=== PATIENT | female | born 1960 | race Caucasian/White ===

== ENCOUNTER → 2016-11-29 | Outpatient (CLI) | payer OTHER ==
--- NOTE | 2016-11-30 09:20 | RAD ---
EXAM DESCRIPTION: Abdomen Flat Upright CLINICAL HISTORY: DIARRHEA COMPARISON: None. FINDINGS: AP supine and upright views of the abdomen show a nonspecific, nonobstructive bowel gas pattern with no evidence for free intraperitoneal air. No air-filled dilated loops of small bowel are seen. No significant air-fluid levels are identified. No obvious organomegaly is seen. No abnormal calcifications are seen in the expected location of the renal collecting systems. Visualized lung bases are unremarkable. Postsurgical or posttraumatic changes to the left iliac crest. Remote. Lateral plate and screw fixation from T12 through L2 is noted. Calcifications of the spleen are identified. IMPRESSION: Nonspecific abdominal series Electronically signed by: Rivera Bhatia MD 11/30/2016 9:20 AM CDT
== END | disposition home or self-care (01) ==
LOC: LAB.O 13:24
PROVIDERS: ATTEND Surgery
DX: K59.1 Functional diarrhea (principal)

== ENCOUNTER → 2017-01-26 | Outpatient (CLI) | payer OTHER | END | disposition home or self-care (01) | LOC: GMAB 18:17 | PROVIDERS: ATTEND Family Medicine | DX: R30.0 Dysuria (principal) ==

== ENCOUNTER 2017-03-22 16:24 | Observation (INO) | payer OTHER ==
[2017-03-22] MEDS ORDERED: NITROGLYCERIN 0.4 MG 25 EA TAB SL ONE (16:47)
[2017-03-22] MEDS ORDERED: ASPIRIN (CHEWABLE) 81 MG TAB ONE (16:47)
[2017-03-22] MEDS ORDERED: ASPIRIN (CHEWABLE) 81 MG TAB PO ONE (16:52)
[2017-03-22] MEDS: NITROGLYCERIN 0.4 MG 25 EA TAB SL ONE ×2 (16:53→17:46)
--- NOTE | 2017-03-22 17:03 | ED.PDOC ---
History of Present Illness - General Chief Complaint: Chest Pain/OR Stated Complaint: left arm and jaw pain Time Seen by Provider: 03/22/17 16:35 Source: patient, RN notes reviewed, Vital Signs reviewed Exam Limitations: no limitations - History of Present Illness Initial Comments: Patient comes in via private vehicle with c/o of L jaw and arm pain, also she just "does not feel good". No BELL, dizziness, Chest pain, SOB, nausea. She has been having similar episodes off and on for "a while". Last one was ~1 month ago. Came in this time because the pain was worse than before. Timing/Duration: 1 hour Severity: moderate - Jaw currently 3/10 @ worst 9/10, L arm 7/10 Location: other - L jaw and arm Activities at Onset: emotional stress - @ work Prior Chest Pain/Cardiac Workup: cardiac cath - no stenting done Improving Factors: nothing Worsening Factors: nothing Nitro Today/Relief: 0.4 mg x 1, provided by ED, mild relief Aspirin Treatment Today: 81 mg x 4, provided by ED Associated Symptoms: malaise Allergies/Adverse Reactions: Allergies Omeprazole [From Prilosec] Allergy (Verified 03/22/17 16:51) Home Medications: Ambulatory Orders Dicyclomine HCl [Bentyl] 20 mg PO BID PRN #14 tab 11/06/14 Ezetimibe [Zetia] 10 mg PO DAILY 11/06/14 Lisinopril 10 mg PO DAILY 11/06/14 Rosuvastatin Calcium [Crestor] 10 mg PO DAILY 11/06/14 levoFLOXacin [Levaquin] 500 mg PO QDAC #7 tab 11/06/14 metroNIDAZOLE [Flagyl] 500 mg PO BID #14 tab 11/06/14 Review of Systems - Review of Systems Constitutional: States: malaise - No energy EENTM: States: no symptoms reported Respiratory: States: no symptoms reported. Denies: cough, short of breath Cardiology: States: no symptoms reported. Denies: chest pain, palpitations Gastrointestinal/Abdominal: States: no symptoms reported. Denies: nausea Musculoskeletal: States: other - L jaw and L arm pain Skin: States: no symptoms reported Neurological: States: no symptoms reported All other Systems: No Change from Baseline Past Medical History (General) - Patient Medical History Hx Cardiac Disorders: Yes - "blockage" no stents Hx Hypertension: Yes Hx Diabetes: No Hx Gastroesophageal Reflux: Yes Surgical History: Hysterectomy, other - Vaccination History Hx Influenza Vaccination: No Hx Pneumococcal Vaccination: No - Social History Hx Tobacco Use: Yes Cigarettes Packs Per Day: 1 Hx Alcohol Use: No Hx Substance Use: No Hx Substance Use Treatment: No Hx Depression: No - Activities of Daily Living Hospice Agency (if applicable):: None - Female History Patient is a Female of Child Bearing Age (10 -59 yrs old): No Patient : No Family Medical History - Family History Mother Family History: Unknown Living Status: Unknown Physical Exam - Physical Exam General Appearance: Alert, No apparent distress, Well Developed, Well Groomed, Well Hydrated, Well Nourished Neck: full range of motion, supple, normal inspection Respiratory: lungs clear, normal breath sounds, no respiratory distress, no accessory muscle use Cardiovascular/Chest: normal peripheral pulses, regular rate, rhythm, no edema, no gallop, no JVD, no murmur Peripheral Pulses: radial,right: 1+, radial,left: 1+, dorsalis pedis,right: 2+, dorsalis pedis,left: 2+ Gastrointestinal/Abdominal: normal bowel sounds, non tender, soft, no organomegaly, no pulsatile mass Extremity: non-tender, normal inspection, no pedal edema Neurologic: alert, normal mood/affect, oriented x 3 Skin Exam: normal color, warm/dry Comments: Vital Signs 03/22/17 16:32 Temperature 98.2 F Pulse Rate [ 82 pulse ox] Respiratory 18 Rate Blood Pressure 190/107 [Left Arm] O2 Sat by Pulse 98 Oximetry Progress - Progress Progress: 03/22/17 17:06 1 SLNTG given, Jaw pain improved to 2/10 & arm to 4/10. BP improved to 167/95 and was equal in both arms. 03/22/17 17:45 Patient reports pain in her jaw and arm is returning. Will given another SLNTG. Initial labs, EKG and CXR are normal. Will repeat cardiac labs in 3 hours from first draw. 03/22/17 18:26 Pain again returned. Gave 5mg of Morphine IV and she is feeling better. BP 135/ 80. ? cardiac vs pinched nerve in neck. 03/22/17 19:14 Patient reports she is doing well. Pain is currently well controlled. 03/22/17 20:57 Discussed with Hospitalist. Second set of enzymes is normal but patient continues to have a waxing and waning of her symptoms. Pain and BP go up and then with meds both come down. Not sure if this is cardiac, BP or musculoskeletal. Will admit for rule out. - Results/Orders Results/Orders: Laboratory Tests 03/22/17 03/22/17 03/22/17 17:10 17:10 17:10 WBC 8.2 RBC 4.92 Hgb 14.4 Hct 42.2 MCV 85.8 MCH 29.2 MCHC 34.1 RDW 12.9 Plt Count 273 MPV 8.8 Absolute Neuts (auto) 4.60 Absolute Lymphs (auto) 2.40 Absolute Monos (auto) 0.80 Absolute Eos (auto) 0.40 Absolute Basos (auto) 0.10 Neutrophils % 55.9 Lymphocytes % 28.7 Monocytes % 10.1 H Eosinophils % 4.5 Basophils % 0.8 D-Dimer, Quantitative < 200 Sodium 139 Potassium 4.2 Chloride 103 Carbon Dioxide 29 Anion Gap 11.2 L BUN 13 Creatinine 0.51 L BUN/Creatinine Ratio 25.5 H Random Glucose 128 H Serum Osmolality 279.3 Calcium 9.8 Total Bilirubin 0.6 AST 22 ALT 27 Alkaline Phosphatase 87 Creatine Kinase 73 CK-MB (CK-2) 2.4 CK-MB (CK-2) % Not Reportable Troponin I < 0.02 Serum Total Protein 7.1 Albumin 4.2 Globulin 2.9 Albumin/Globulin Ratio 1.4 03/22/17 20:19 WBC RBC Hgb Hct MCV MCH MCHC RDW Plt Count MPV Absolute Neuts (auto) Absolute Lymphs (auto) Absolute Monos (auto) Absolute Eos (auto) Absolute Basos (auto) Neutrophils % Lymphocytes % Monocytes % Eosinophils % Basophils % D-Dimer, Quantitative Sodium Potassium Chloride Carbon Dioxide Anion Gap BUN Creatinine BUN/Creatinine Ratio Random Glucose Serum Osmolality Calcium Total Bilirubin AST ALT Alkaline Phosphatase Creatine Kinase 67 CK-MB (CK-2) 2.8 CK-MB (CK-2) % Not Reportable Troponin I 0.04 Serum Total Protein Albumin Globulin Albumin/Globulin Ratio - EKG/XRAY/CT EKG: Sinus, no ST T wave changes Comments: Rate 72 XRAY: chest - Normal per Radiologist Departure - Departure Clinical Impression: Hypertensive urgency, Jaw pain, Left arm pain Time of Disposition: 20:59 Disposition: Admit Patient Departure Forms: ED Discharge - Pt. Copy, Patient Portal Self Enrollment Referrals: Arsenio Contreras MD [Primary Care Provider] - 1-2 Weeks Home Medications: Ambulatory Orders Dicyclomine HCl [Bentyl] 20 mg PO BID PRN #14 tab 11/06/14 Ezetimibe [Zetia] 10 mg PO DAILY 11/06/14 Lisinopril 10 mg PO DAILY 11/06/14 Rosuvastatin Calcium [Crestor] 10 mg PO DAILY 11/06/14 levoFLOXacin [Levaquin] 500 mg PO QDAC #7 tab 11/06/14 metroNIDAZOLE [Flagyl] 500 mg PO BID #14 tab 11/06/14 Decision To Admit - Decistion To Admit Decision to Admit Reason: Admit from ER Decision to Admit Date: 03/22/17 Decision to Admit Time: 20:57
--- NOTE | 2017-03-22 17:26 | RAD ---
EXAM DESCRIPTION: Chest,1 View CLINICAL HISTORY: L jaw arm pain COMPARISON: 20 April 2010 TECHNIQUE: AP portable chest FINDINGS: The lungs are clear. There is no infiltrate or effusion. The heart is normal size. IMPRESSION: Normal portable chest Electronically signed by: Home Schreiber MD 03/22/2017 5:25 PM CDT
[2017-03-22] MEDS ORDERED: MORPHINE SULFATE INJ 10 MG/ML VIAL IV ONE ×2 (17:56→19:35)
--- NOTE | 2017-03-22 21:44 | HP ---
SUPERVISING PHYSICIAN: Dick Collazo MD CHIEF COMPLAINT: Left jaw and left arm pain. HISTORY OF PRESENT ILLNESS: Ms. Medley is a 57-year-old, female patient who presented to the Emergency Room via private vehicle complaining of left jaw and arm pain. She also notes she "just doesn't feel good." She has had no complaints of headache, dizziness, chest pain, shortness of breath or nausea. In fact, she has had a similar episode of on and off pain for a while which was apparently last month, but came to the Emergency Room this time because the pain was a little worse than previous episodes. In the Emergency Department, she was given nitroglycerin which provided minimal relief. It was noted that she was quite hypertensive with initial blood pressure of 190/107. She was then given morphine that resulted in near resolution of her symptoms. Her blood pressure then improved to 148/78 and shortly after, the pain returned and her blood pressure again elevated and she was given nitroglycerin and morphine as before which resulted in improvement of her symptoms. She had laboratory studies completed that showed she had a CBC that was within normal limits. D-Dimer was less than 200. Her chemistries showed normal electrolytes , normal liver functions and she had two sets of cardiac enzymes prior to admission with initial set less than 0.02 and three hour troponin was 0.04. Dr. Trujillo requested the patient be placed in observation given the nature of her pain with concern for possible underlying cardiac origin given that the patient has had some cardiac history in the past. Review of her past medical records showed she had a cardiac workup in 2008 at which time she had a nuclear stress test that was found to be normal. She also had echocardiogram that was found to be normal with an ejection fraction between 65% and 70%. She does have a significant history of smoking approximately one pack of cigarettes per day as well as she has had significant problems with her cervical and lumbar spine which she has had surgeries for in the past. An EKG in the Emergency Room showed a normal sinus rhythm with no ST wave changes and compared to EKG on 06/16/14, no significant changes. The patient is now going to be placed in observation for continued cardiac monitoring and to further rule out any acute cardiac event as the origin of her neck and arm pain. PAST MEDICAL HISTORY: 1. Hypertension. 2. Hyperlipidemia. 3. Irritable bowel syndrome. 4. Chronic obstructive pulmonary disease. 5. Chronic tobacco abuse. PAST SURGICAL HISTORY: 1. Hysterectomy. 2. Bladder suspension. 3. Lumbar and cervical back surgeries. 4. Surgery to repair deviated septum. HOME MEDICATIONS: Please refer to updated list in electronic medical record for verified medications. 1. Crestor 10 mg daily. 2. Losartan 100 mg at bedtime. FAMILY HISTORY: Father at age 42 from a myocardial infarction. Mother at 72 secondary to Alzheimer's disease. SOCIAL HISTORY: The patient lives in [place], [place]. 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 She is . She smokes approximately one pack of cigarettes per day. She denies any alcohol or drug usage. REVIEW OF SYSTEMS: CONSTITUTIONAL: Denies any fevers, chills, just general malaise. HEENT: Denies headaches, visual disturbances or neck pain or stiffness. She does have left jaw pain as noted in history of present illness. RESPIRATORY: Denies any shortness of breath, cough, hemoptysis. CARDIOVASCULAR: As noted in history of present illness. No significant chest pain, but left jaw and arm pain. Denies any syncopal episodes or palpitations, chest pains or chest pressure. GASTROINTESTINAL: She has a history of irritable bowel syndrome, but denies nausea or vomiting, diarrhea or hematochezia, hematemesis, melena or constipation. GENITOURINARY: Denies dysuria, hematuria, polyuria or other urinary symptoms. MUSCULOSKELETAL: Left arm pain as noted in history of present illness. NEUROLOGIC: Denies headaches, syncopal episodes or other neurologic symptoms. No focal weaknesses or loss of sensation in any extremity and she does move all extremities ad ioana with no change in functionality. PHYSICAL EXAMINATION: VITAL SIGNS: Blood pressure initially in the Emergency Department was 190/107. Heart rate 82. O2 saturation 98% with respirations 18 and temperature 98.2. After nitroglycerin and morphine, blood pressure did improve to 140/78 with heart rate 81. At time of admission to the Medical/Surgical Floor, she was once again hypertensive with blood pressure 157/106. Admission weight was 93.8 kg. GENERAL: The patient appears to be in no acute distress at time of admission to the Medical/Surgical Floor. She is well-hydrated, well-nourished, alert and oriented. HEENT: Tympanic membranes clear bilaterally. Oropharynx is pink, moist without any lesions. NECK: Supple, nontender with full range of motion. No jugular venous distention noted. CHEST: Lungs clear to auscultation bilaterally without any appreciable. rhonchi , wheezes, or rales. CARDIOVASCULAR: Regular rate and rhythm without any appreciable murmurs, gallops, or rubs. ABDOMEN: Obese, but soft, nontender. Positive bowel sounds. EXTREMITIES: There is no cyanosis, clubbing or edema. NEUROLOGIC: The patient is alert and oriented times three. Cranial nerves II- XII are grossly intact. No motor or sensory deficits noted. LABORATORY: CBC on admission was within normal limits with white count 8.2. Coagulation studies showed D-dimer less than 200. Chemistries showed normal electrolytes with potassium 4.2, BUN 13, creatinine 0.5, glucose 128. Liver functions all within normal limits. Initial set of cardiac enzymes showed troponin less than 0.02. Repeat at three hours showed troponin 0.04 with a normal CPK. RADIOLOGY: Chest x-ray in the Emergency Department, single view, per radiologic interpretation showed normal portable chest. EKG showed normal sinus rhythm with no ST wave changes, no T wave inversion compared to old EKG dated 06/16/14. ASSESSMENT: 1. Left jaw and arm pain, needing to rule out underlying myocardial infarction with no mention of chest pains. 2. Hypertensive urgency with the patient having history of hypertension, currently on angiotensin receptor jane. 3. Hyperlipidemia. 4. Strong family history of coronary artery disease with the patient having a normal stress test in 2008 as well as echocardiogram as noted in review of past medical records. 5. Chronic tobacco abuse with one pack a day smoking history, encouraged to stop smoking. 6. History of irritable bowel syndrome. 7. Obesity as evidenced by body mass index of 37.9. PLAN: The patient will be placed in observation tonight and started on telemetry to further rule out any underlying cardiac ischemic events with repeat cardiac enzymes in the morning. She will be started on nitro patch 0.2 mg. She will be provided morphine for pain as needed and close monitoring of her blood pressure and treatment with clonidine as needed p.r.n. She will also be restarted on her losartan tonight in efforts to better control her blood pressure. She will be started on DVT prophylaxis as per protocol. We will plan to repeat EKG and cardiac enzymes in the morning for q.6h. for three sets. We will anticipate length of stay to be one to two days. Once the patient is clinically stable and can be discharged, she will need close clinical followup with her primary care physician, Dr. Contreras. Until then, we will continue to monitor the patient closely and treat appropriately. #[id number] MTDD
[2017-03-22] MEDS ORDERED: NITROGLYCERIN 0.4 MG 25 EA TAB SL PRN (21:57)
[2017-03-22] MEDS ORDERED: ACETAMINOPHEN 325 MG TAB PO PRN (21:57)
[2017-03-22] MEDS ORDERED: MORPHINE SULFATE INJ 10 MG/ML VIAL IV PRN (21:57)
[2017-03-22] MEDS ORDERED: IV SET AND CAP CHANGE INJ INJ SCH (22:00)
[2017-03-22] MEDS ORDERED: cloNIDine HCL 0.1 MG TAB PO ONE (22:05)
[2017-03-22] MEDS ORDERED: NITROGLYCERIN 0.2 MG/HR PATCH TD ONE (22:39)
[2017-03-22] MEDS ORDERED: ZOLPIDEM TARTRATE 5 MG TAB PO PRN (22:50)
[2017-03-22] MEDS ORDERED: LOSARTAN POTASSIUM 100 MG TAB ONE (22:53)
[2017-03-22] MEDS ORDERED: LOSARTAN POTASSIUM 25 MG TAB PO ONE (23:00)
[2017-03-22] MEDS ORDERED: ENOXAPARIN SODIUM 40 MG/0.4 ML SYG SUBCU SCH (23:00)
--- NOTE | 2017-03-22 23:35 | PCM.CORE ---
Physician DVT/VTE - Nurse DVT Assessment & Total Each Risk Factor Represents 1 Point: Age 41-60, Medical PT at Bed Rest, Hx of smoking past year Each Risk Factor is 1 Point: Obesity (BMI >25) DVT Assessment Score: 4 - 3-4 High Risk Treatments: Early Ambulation *, Sequential Compression Device Pharmacological: Enoxaparin 40 mg SQ Daily
[2017-03-23] MEDS: MORPHINE SULFATE INJ 10 MG/ML VIAL IV PRN ×3 (02:01→11:37)
[2017-03-23] MEDS: SODIUM CHLORIDE 0.9% (FLUSH) 10 ML SYG IV PRN ×2 (02:07→08:18)
[2017-03-23 02:20] VITALS: TEMP 97.8
[2017-03-23 08:43] VITALS: BP 123/78
[2017-03-23] MEDS ORDERED: ENOXAPARIN SODIUM 100 MG/ML SYG SUBCU ONE (08:55)
[2017-03-23] MEDS ORDERED: NITROGLYCERIN 0.4 MG/HR PATCH TOP SCH (09:00)
[2017-03-23] MEDS ORDERED: SODIUM CHLORIDE 0.9% (FLUSH) 10 ML SYG IV SCH (09:00)
[2017-03-23] MEDS ORDERED: LOSARTAN POTASSIUM 100 MG TAB PO SCH ×3 (09:00→21:00)
[2017-03-23] MEDS ORDERED: ASPIRIN TABLET 325 MG TAB PO SCH (09:00)
[2017-03-23] MEDS ORDERED: KCL 20MEQ/0.45% NS 1,000 ML IVS PRN (09:04)
[2017-03-23] MEDS ORDERED: ASPIRIN TABLET 325 MG TAB ONE (09:45)
[2017-03-23 10:12] VITALS: O2SAT 95
[2017-03-23] MEDS ORDERED: REMOVE OLD PATCH TOP ONE (10:30)
--- NOTE | 2017-03-23 19:21 | DS ---
SUPERVISING PHYSICIAN: Dick Collazo M.D. DISCHARGE DIAGNOSIS: 1. Atypical chest pain with a non-ST segment elevation myocardial infarction with the patient being transferred to Cardiology Services with Dr. Jarrett at [facility]. 2. Hypertensive urgency with the patient having history of hypertension, currently on angiotensin receptor jane showing good response with a Nitro patch with blood pressure controlled at discharge. 3. Hyperlipidemia not currently on a statin. 4. Strong family history of coronary artery disease. 5. Chronic tobacco abuse with one pack a day smoking history, encouraged to stop smoking. 6. History of irritable bowel syndrome. 7. Obesity as evidenced by body mass index of 37.9. HISTORY OF PRESENT ILLNESS: Ms. Medely is a 57-year-old, female patient who presented initially to the Emergency Room on 03/22/17 via private vehicle complaining of left jaw and arm pain. She had noted that she "just doesn't feel good." She had no complaints of headache, dizziness, chest pain, shortness of breath or nausea on initial presentation. In fact, she has had a similar episode of on and off pain similar to what she was having on admission within the last month, but came to the Emergency Room this time because the pain was worse than previous episodes. In the Emergency Department, she was given nitroglycerin which provided minimal relief. It was also noted that she was quite hypertensive with initial blood pressure of 190/ 107. She was given morphine that resulted in near resolution of her symptoms. Her blood pressure did improve to 148/78 but shortly after the pain returned and her blood pressure again elevated, and she was given nitroglycerin and morphine as before which resulted in improvement of her symptoms. Laboratory studies completed showed that she had a CBC within normal limits. D-Dimer was less than 200. Her chemistries as well showed to be within normal limits including electrolytes and liver functions. Her cardiac enzymes initially showed troponin as 0.02 and three hour post troponin was 0.04. At that point, Dr. Trujillo requested the patient be placed in observation given the nature of her pain and her past medical history, and concern for possible underlying cardiac origin given that the patient has had some cardiac history in the past. Review of her past medical records showed that she had a cardiac workup in 2008. At that time she had a stress test that was found to be normal as well as an echocardiogram with an ejection fraction of 65% to 70%. She does have a significant history of smoking approximately one pack of cigarettes per day as well as she has had significant problems from cervical and lumbar spine disc problems for which she has had surgeries in the past. An EKG in the Emergency Room showed a normal sinus rhythm with no ST wave changes and compared to EKG on 06/16/14, no significant changes were noted. The patient was then placed in observation for cardiac monitoring and to continue to further rule out any acute cardiac event as the origin of her neck, jaw and arm pain. LABORATORY: CBC on admission showed to be within normal limits as well as discharge. White count at discharge was 7.6, hemoglobin 13, hematocrit 39.4, platelet count 250,000. Coagulation studies showed a normal D-dimer. Chemistries showed normal electrolytes on admission and at discharge with potassium 3.9, calcium 9.4, glucose 134, BUN 14, creatinine 0.51. Liver functions showed to be within normal limits. She had 3 sets of cardiac enzymes with the first two being within normal limits, the last one had elevated to 0.35. BNP was 15.1. Lipid panel showed triglycerides of 613 with cholesterol 240, LDL was 93 and HDL was 37. Urinalysis was never collected. RADIOLOGY: She had a chest x-ray in the Emergency Department single view per radiology interpretation showed a normal portable chest. HOSPITAL COURSE: Ms. Medley as noted in the History of Present Illness was admitted for intermittent left jaw, neck and arm pain. As noted above, she did get some relief with Nitro and morphine as well as she was having some problems with blood pressure that responded well to both treatments. She was placed in Observation initially, started on a Nitro patch at 0.2. Her pain did resolve initially with morphine but was intermittent throughout the night and her last troponin was showing to be elevated. She showed no abnormal rhythms on telemetry and her EKG remained unchanged from admission. Given the elevated troponin and current symptoms, arrangements were made for transfer to a higher level of care with Cardiology with Dr. Jarrett at [facility]. PLAN: The patient is to be transferred to [facility] in [place] for cardiology services, accepting Dr. Jarrett. The patient was transferred by ambulance. Diet at transfer was NPO. Condition at transfer was guarded but stable. #[id number] [facility]
[2017-03-23] MEDS ORDERED: ASPIRIN EC 81 MG TAB PO SCH (21:00)
[2017-03-23] MEDS ORDERED: ENOXAPARIN SODIUM 40 MG/0.4 ML SYG SUBCU SCH (21:00)
== END 2017-03-23 11:50 | disposition short-term general hospital (02) ==
LOC: ER 16:24 → MS 21:43
PROVIDERS: ADMIT Nurse Practitioner Family; ATTEND Nurse Practitioner Family
DX: R07.89 Other chest pain (principal); I16.0 Hypertensive urgency; I10 Essential (primary) hypertension; E78.5 Hyperlipidemia, unspecified; F17.210 Nicotine dependence, cigarettes, uncomplicated; K58.9 Irritable bowel syndrome, unspecified; E66.9 Obesity, unspecified; J44.9 Chronic obstructive pulmonary disease, unspecified; Z82.49 Family history of ischemic heart disease and other diseases of the circulatory system; Z68.37 Body mass index [BMI] 37.0-37.9, adult; Z79.899 Other long term (current) drug therapy; Z90.710 Acquired absence of both cervix and uterus; Z81.8 Family history of other mental and behavioral disorders
CPT/HCPCS: 36415 ×4; 71010; 80048; 80053; 80061; 82550 ×3; 82553 ×3; 83880; 84484 ×3; 85025 ×2; 85379; 93005 ×2; 96372 ×2; 96374; 96376 ×2; 99284; 99406; G0378; J1650 ×2; J2270 ×5; J3480

== ENCOUNTER 2017-03-25 22:36 | Observation (INO) | payer OTHER ==
--- NOTE | 2017-03-25 22:47 | ED.PDOC ---
History of Present Illness - General Chief Complaint: General Stated Complaint: elevated bp Time Seen by Provider: 03/25/17 22:46 Source: patient Exam Limitations: no limitations - History of Present Illness Initial Comments: Lexi Medley 57 y/o stated that her blood pressure was high tonight averaging about bp-162/110 which she took several times tonight. stated that she ust got discharge from hospital today after she had nstemi and cardiac cath done showing no significant coronary lesion. Timing/Duration: 1-3 hours Improving Factors: nothing Worsening Factors: nothing Associated Symptoms: denies symptoms Allergies/Adverse Reactions: Allergies Omeprazole [From Prilosec] Allergy (Verified 03/22/17 16:51) Home Medications: Ambulatory Orders Losartan Potassium 100 mg PO BEDTIME 03/23/17 Aspirin [Aspirin Adult Low Dose] 81 mg PO DAILY 03/25/17 Review of Systems - Review of Systems Constitutional: States: no symptoms reported EENTM: States: no symptoms reported Respiratory: States: no symptoms reported Cardiology: States: no symptoms reported Gastrointestinal/Abdominal: States: no symptoms reported Genitourinary: States: no symptoms reported Musculoskeletal: States: no symptoms reported Skin: States: no symptoms reported Neurological: States: no symptoms reported Endocrine: States: no symptoms reported Hematologic/Lymphatic: States: no symptoms reported Past Medical History (General) - Patient Medical History Hx Seizures: No Hx Stroke: No Hx Asthma: No Hx of COPD: No Hx Cardiac Disorders: Yes - "blockage" no stents Hx Congestive Heart Failure: No Hx Pacemaker: No Hx Hypertension: Yes Hx Diabetes: No Hx Gastroesophageal Reflux: Yes Hx MRSA: No Surgical History: tonsillectomy, other - back,hysterectomy,nose - Vaccination History Hx Influenza Vaccination: No Hx Pneumococcal Vaccination: No - Social History Hx Tobacco Use: Yes Hx Alcohol Use: No Hx Substance Use: No Hx Substance Use Treatment: No Hx Depression: No - Female History Patient : No Family Medical History - Family History Mother Family History: Unknown Living Status: Unknown Physical Exam - Physical Exam General Appearance: Alert, No apparent distress Eye Exam: bilateral normal Ears, Nose, Throat: hearing grossly normal, normal ENT inspection Neck: non-tender, full range of motion, supple Respiratory: chest non-tender, lungs clear, normal breath sounds Cardiovascular/Chest: normal peripheral pulses, regular rate, rhythm, no edema, no murmur Peripheral Pulses: radial,right: 1+, radial,left: 1+ Gastrointestinal/Abdominal: normal bowel sounds, non tender, soft, no organomegaly Back Exam: normal inspection, no CVA tenderness, no vertebral tenderness Extremity: normal range of motion, non-tender, no pedal edema, no calf tenderness Neurologic: no motor/sensory deficits, alert, oriented x 3 Skin Exam: normal color Lymphatic: no adenopathy Progress - Progress Progress: 03/26/17 00:27 Vital Signs - 8 hr 03/25/17 03/25/17 22:47 22:48 Temperature 98.2 F Pulse Rate [ 78 78 Left radial] Respiratory 20 20 Rate Blood Pressure 186/109 [Left Arm] O2 Sat by Pulse 95 Oximetry - EKG/XRAY/CT EKG: Sinus Comments: heart rate 71 left atrial enlargement Departure - Departure Clinical Impression: Hypertensive urgency Time of Disposition: 00:48 Disposition: Admit Patient Condition: Fair Referrals: Arsenio Contreras MD [Primary Care Provider] - 1-2 Weeks Home Medications: Ambulatory Orders Losartan Potassium 100 mg PO BEDTIME 03/23/17 Aspirin [Aspirin Adult Low Dose] 81 mg PO DAILY 03/25/17 Decision To Admit - Decistion To Admit Decision to Admit Reason: Admit from ER Decision to Admit Date: 03/26/17 - D/W Naveed Rubio-ANP/Hospitalist Decision to Admit Time: 00:46
[2017-03-25] MEDS ORDERED: cloNIDine HCL 0.1 MG TAB PO ONE (23:03)
--- NOTE | 2017-03-25 23:07 | RAD ---
Clinical History : high bp , MAIN Exam : Portable AP view of the chest 03/25/2017 10:47 PM CDT Comparisons : Portable AP view of the chest March 22, 2017 Findings : The lungs are clear without focal consolidation or pleural effusion. The heart is normal in size. The mediastinal contours are normal in appearance. The thoracic spine is stable in appearance with surgical hardware in the lower thoracic and upper lumbar spine. The shoulders are unremarkable. Limited evaluation of the upper abdomen demonstrates no gross abnormalities. Impression: No acute cardiopulmonary disease (stable appearing chest). Electronically signed by: Gus Pichardo MD 03/25/2017 11:06 PM CDT
--- NOTE | 2017-03-26 01:05 | HP ---
SUPERVISING PHYSICIAN: Dick Collazo M.D. CHIEF COMPLAINT: Elevated blood pressure. HISTORY OF PRESENT ILLNESS: Ms. Lexi Medley is a 57 year-old female that had just been recently transferred this past week from [facility] to [facility] for a non-ST segment elevation myocardial infarction. Apparently she had a cardiac workup there with cardiac catheterization but no stents were placed and she was discharged yesterday with medications for blood pressure, but she was unable to fill those medications. There was a miscommunication where they were to be sent and she was unable to start medications at home. She presented to the Emergency Department today because she was having high blood pressure that she was noting to be around 162/110 throughout the day. She denied any shortness of breath or any chest pains. She does take Losartan which she did take and actually takes 100 mg daily, but she doubled her dose as well as started taking her 's medications which included possibly some Lisinopril Hydrochlorothiazide and Lopressor. She continued to have significant elevation in blood pressure and presented to the Emergency Department. In the Emergency Department, initial vital signs, blood pressure showed to be 186/109. She was given 0.2 mg of Clonidine which she did respond to and within 2 hours her blood pressure was down to 109/60 with a heart rate of 64. She was satting 98% on room air. She had no complaints of chest pains. Workup in the E. R. did continue with an EKG that showed no changes compared to previous EKGs in the past week as well as laboratory studies that showed she had a normal CBC and electrolytes on the chemistries were within normal limits. BUN 11, creatinine 0.46 and she had a slightly elevated AST and ALT otherwise labs were unremarkable. Given her history of uncontrolled blood pressure with hypertensive urgency, Dr. Hoff requested the patient be placed in observation to assist with further management of her blood pressure. She was placed in observation in stable condition. PAST MEDICAL HISTORY: 1. Recent non-ST segment elevation myocardial infarction without stent placement. 2. Hypertension, uncontrolled. 3. Hyperlipidemia. 4. Irritable bowel syndrome. 5. Chronic obstructive pulmonary disease. 6. Chronic tobacco abuse. PAST SURGICAL HISTORY: 1. Recent heart cath within the last week. 2. Hysterectomy. 3. Bladder suspension. 4. Lumbar cervical back surgeries. 5. Surgery for repair of deviated septum. HOME MEDICATIONS: At time of admission, the patient only knew that she was on Losartan 100 mg at bedtime and aspirin 81 mg daily. FAMILY HISTORY: Father at age 42 from myocardial infarction. Mother at 72 secondary to Alzheimer's disease. SOCIAL HISTORY: The patient lives in [place], [place]. 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 She is . She does smoke approximately 1 pack of cigarettes per day. She has had a history of smoking up to 2 packs within the last year and has smoked for over 30 years. She denies any alcohol or drug use. REVIEW OF SYSTEMS: She denied any fever or chills. Noted she does have some general malaise. HEENT: Denies any headaches, visual disturbances, neck pain or stiffness. RESPIRATORY: Denies any shortness of breath, cough or hemoptysis. CARDIOVASCULAR: As noted in the History of Present Illness. Denies any chest pains, any syncopal or presyncopal episodes, palpitations. GASTROINTESTINAL: She does have a history of irritable bowel syndrome but denies any nausea, vomiting, diarrhea, hematochezia, hematemesis, melena or constipation. GENITOURINARY: Denies any dysuria, hematuria, polyuria or other urinary symptoms. MUSCULOSKELETAL: Denies any joint pain or other muscle soreness. NEUROLOGIC: She denies any headache, syncopal episodes or any other neurological symptoms. She denies any focal weakness or any loss of sensation in any extremity. PHYSICAL EXAMINATION: VITAL SIGNS: Blood pressure in the Emergency Room on admission showed to be 186 /99 with a heart rate of 78, temperature 98.2 with saturation of 95 on room air with respirations 20. At time of Medical/Surgical floor admission, blood pressure was down to 109/60, temperature 98.2, pulse 64. She was satting 98% on room air. Admission weight 93.0 kg. GENERAL: The patient appears to be well nourished and well hydrated in no acute distress and alert. HEENT: Tympanic membranes are clear bilaterally. Oropharynx was pink and moist without any lesions. NECK: Supple, non-tender with full range of motion. No jugular venous distention. CHEST: Lungs are clear to auscultation, just diminished towards the bases. No wheezing or rhonchi. CARDIOVASCULAR: Regular rate and rhythm without appreciable murmurs, gallops, or rubs. ABDOMEN: Soft, non-tender. Positive bowel sounds. EXTREMITIES: No clubbing, cyanosis or edema. NEUROLOGIC: She is alert and oriented times three. Cranial nerves II-XII are grossly intact. Facial features were symmetrical. Extraocular movements are within normal limits. There were no motor or sensory deficits noted. LABORATORY: CBC showed to be within normal limits with white count 9.3. Chemistries showed normal electrolytes, potassium 3.8, BUN 11, creatinine 0.46, glucose 117. Bilirubin was normal but AST and ALT were slightly elevated with AST of 65, ALT 61. Urinalysis showed small amount of blood. Microscopic revealed 3 to 5 WBCs, 1 to 3 RBCs, 5 to 10 epithelials with 2+ bacteria with 1+ calcium oxalate crystals and small amount of mucous. RADIOLOGY: Chest x-ray in the Emergency Department single view per radiology interpretation showed no acute cardiopulmonary disease, stable-appearing chest compared to previous. EKG showed normal sinus rhythm with heart rate 71. ASSESSMENT: 1. Hypertensive emergency in a patient with a recent non-ST segment elevation myocardial infarction without any complaints of chest pains. 2. Poor medical compliance requiring close monitoring and adjustment of blood pressure medications. 3. Hyperlipidemia. 4. Irritable bowel syndrome. 5. Chronic obstructive pulmonary disease. 6. Chronic tobacco abuse. PLAN: The patient will be placed in Observation tonight. Today, she was given 0.2 mg of Clonidine prior to admission. Her blood pressure has been good. Will plan to start her on Coreg 6.25 b.i.d. and allow the other medications that she took the night before to wear off, and restart her on her Losartan 100 mg at nighttime. Will utilize Clonidine p.r.n. as needed for hypertension and monitor on telemetry closely. Dr. Jarrett is her truck caterer. His cell phone number is [phone]. Will need to touch base with him tomorrow to find out exactly what he had as far as plan of care at discharge and what medications she was supposed to be sent home on in attempts to reestablish a normal blood pressure regimen with medication. Once shown to be stable in regards to blood pressure and clinically when discharged, she will need close clinical followup with both Dr. Jarrett and Dr. Contreras, her primary care physician. Until then, will continue to monitor and treat appropriately. #[id number] [facility]
[2017-03-26] MEDS ORDERED: ACETAMINOPHEN 325 MG TAB PO PRN (01:56)
[2017-03-26] MEDS ORDERED: NITROGLYCERIN 0.4 MG 25 EA TAB SL PRN (01:56)
[2017-03-26] MEDS ORDERED: SODIUM CHLORIDE 0.9% (FLUSH) 10 ML SYG IV PRN (01:56)
[2017-03-26] MEDS ORDERED: IV SET AND CAP CHANGE INJ INJ SCH (02:00)
[2017-03-26] MEDS ORDERED: SODIUM CHLORIDE 0.9% (FLUSH) 10 ML SYG IV SCH (09:00)
[2017-03-26] MEDS: CARVEDILOL 3.125 MG TAB PO SCH ×3 (09:36→20:38)
[2017-03-26] MEDS: KCL 20MEQ/0.45% NS 1,000 ML IVS PRN ×2 (11:51→20:37)
[2017-03-26] MEDS ORDERED: LEVALBUTEROL NEBS 1.25 MG/3 ML VIAL NEB PRN (11:55)
[2017-03-26] MEDS: LEVALBUTEROL NEBS 1.25 MG/3 ML VIAL NEB SCH ×3 (12:08→20:46)
--- NOTE | 2017-03-26 16:47 | PCM.CORE ---
Physician DVT/VTE - Nurse DVT Assessment & Total Each Risk Factor Represents 3 Points: Medical PT with Hx of PA, CHF, Severe infection/sepsis Each Risk Factor Represents 1 Point: Age 41-60, Medical PT at Bed Rest Each Risk Factor is 1 Point: Hx of Inflammatory Bowel Disease, Obesity (BMI >25) , Serious Lung disease (pnemonia <1month, COPD, emphysema,etc) DVT Assessment Score: 8 - 5 or more Very High Risk Treatments: Early Ambulation *, Sequential Compression Device Pharmacological: Enoxaparin 40mg SQ Daily
[2017-03-26] MEDS ORDERED: ENOXAPARIN SODIUM 40 MG/0.4 ML SYG SUBCU SCH (17:00)
[2017-03-26] MEDS ORDERED: LOSARTAN POTASSIUM 100 MG TAB PO SCH (21:00)
[2017-03-26] MEDS ORDERED: ZOLPIDEM TARTRATE 5 MG TAB PO PRN (22:38)
[2017-03-27] MEDS: KCL 20MEQ/0.45% NS 1,000 ML IVS PRN (04:38)
[2017-03-27] MEDS: CARVEDILOL 3.125 MG TAB PO SCH (08:40)
[2017-03-27] MEDS ORDERED: ASPIRIN EC 81 MG TAB PO SCH (09:00)
[2017-03-27] MEDS: LEVALBUTEROL NEBS 1.25 MG/3 ML VIAL NEB SCH (09:22)
[2017-03-27 12:22] VITALS: O2SAT 99
[2017-03-27 13:01] VITALS: BP 90/60; TEMP 97.8
--- NOTE | 2017-03-27 14:09 | DS ---
DISCHARGE DIAGNOSIS: 1. Significant hypertensive emergency requiring institution of new medications to assist with ongoing blood pressure control. 2. History of coronary artery disease with a recent non-ST segment elevation myocardial infarction having received angiography with no specific intervention at this time other than medical treatment. 3. History of hyperlipidemia. 4. History of irritable bowel syndrome. 5. Chronic obstructive pulmonary disease. 6. Chronic tobacco abuse, encouraged to stop. HISTORY OF PRESENT ILLNESS: This 57 year-old, white female was placed in the hospital from the Emergency Room for overnight observation because of significant elevated blood pressure. She had continued with her losartan after her recent discharge from [facility] because of a myocardial infarction. She had cardiac catheterization, yet no stents were placed. The patient was seen and treated by Dr. Jarrett, production control scheduler, who will assist with her ongoing care. She was given a prescription for Crestor, which has yet to be filled, and some nitroglycerins. She was continued on the losartan, but because of elevated blood pressure, an additional medication was tried in the hospital successfully and will be continued at a lower dose after her discharge. LABORATORY: White count normal at 9.3, hemoglobin 14.9. Chemistries showed potassium 4.3, BUN 11, creatinine 0.45, glucose 126, calcium 9.5. Liver enzymes normalized. Albumin 3.8. Urinalysis shows trace hematuria and pyuria with 2+ bacteruria. No culture was obtained. RADIOLOGY: Chest x-ray was performed and showed no acute cardiopulmonary process at this time . HOSPITAL COURSE: The patient's condition stabilized. Blood pressure lowered from 186/109 down to a systolic in the 120s. She was feeling much improved at the time of discharge and was ready to be followed as an outpatient. PLAN: The patient will have close followup with Dr. Contreras in the clinic with initial visit hopefully by tomorrow for clinic followup. She will followup with Dr. Jarrett in cardiology clinic. She is encouraged to increase walking, yet avoid heat exposure. She will continue with her home medications to which is added Coreg 3.125 mg b.i.d., #60 tablets given. She will continue with the losartan 100 mg h.s. Return if not improving. #[id number] [facility]
[2017-03-27] MEDS ORDERED: ENOXAPARIN SODIUM 40 MG/0.4 ML SYG SUBCU SCH (21:00)
== END 2017-03-27 13:12 | disposition home or self-care (01) ==
LOC: ER 22:36 → MS 03-26 01:04
PROVIDERS: ADMIT Nurse Practitioner Family; ATTEND Emergency Medicine
DX: I16.0 Hypertensive urgency (principal); I10 Essential (primary) hypertension; I25.10 Atherosclerotic heart disease of native coronary artery without angina pectoris; I25.2 Old myocardial infarction; E78.5 Hyperlipidemia, unspecified; K58.9 Irritable bowel syndrome, unspecified; J44.9 Chronic obstructive pulmonary disease, unspecified; F17.210 Nicotine dependence, cigarettes, uncomplicated; Z79.82 Long term (current) use of aspirin; Z79.899 Other long term (current) drug therapy; Z88.8 Allergy status to other drugs, medicaments and biological substances; Z98.890 Other specified postprocedural states; Z90.710 Acquired absence of both cervix and uterus; Z82.49 Family history of ischemic heart disease and other diseases of the circulatory system; Z81.8 Family history of other mental and behavioral disorders
CPT/HCPCS: 36415 ×2; 71010; 80053 ×2; 81001; 85025; 93005; 94640 ×3; 94760 ×2; G0378; J1650; J3480 ×3; J7614 ×4

== ENCOUNTER → 2018-05-08 | Outpatient (CLI) | payer BC | LOC: GMAE 11:26 | PROVIDERS: ATTEND Family Medicine | DX: Z00.00 Encounter for general adult medical examination without abnormal findings (principal); E83.52 Hypercalcemia ==

== ENCOUNTER → 2018-05-14 | Outpatient (CLI) | payer BC | LOC: GMAE 13:37 | PROVIDERS: ATTEND Family Medicine | DX: E21.3 Hyperparathyroidism, unspecified (principal) ==

== ENCOUNTER 2018-07-06 15:18 | Emergency (ER) | payer BC ==
[2018-07-06 15:44] VITALS: TEMP 98.4
[2018-07-06] MEDS ORDERED: SODIUM CHLORIDE 0.9% 1000ML 1,000 ML IVS ONE (16:34)
[2018-07-06] MEDS ORDERED: POTASSIUM CHLORIDE ELIXIR 20 MEQ/15 ML UD PO ONE (16:34)
[2018-07-06] MEDS ORDERED: MAGNESIUM SULFATE PREMIX 2GM 2 GM in PREMIX BAG 1 BAG IVPB ONE (16:34)
[2018-07-06] MEDS ORDERED: MAGNESIUM SULFATE PREMIX 2GM 50 ML IVPB ONE (16:38)
[2018-07-06 17:59] VITALS: BP 146/87; O2SAT 95
--- NOTE | 2018-07-06 18:10 | ED.PDOC ---
History of Present Illness - General Chief Complaint: Post Op Problems Stated Complaint: leg cramps, tingling in hands Time Seen by Provider: 07/06/18 15:20 Source: patient Exam Limitations: no limitations - History of Present Illness Initial Comments: the patient is a 58-year-old female presenting to the emergency room secondary to leg cramps that started last night. The patient has recently had one of her parathyroid glands removed secondary to hyperparathyroidism. She has been warned about hypocalcemia. She presents secondary to this possibility. No nausea or vomiting. No syncope. No chest pains. No palpitations. Timing/Duration: 24 hours Severity: moderate Improving Factors: nothing Worsening Factors: nothing Associated Symptoms: denies symptoms Allergies/Adverse Reactions: Allergies Omeprazole [From Prilosec] Allergy (Intermediate, Verified 07/06/18 15:31) Rash Home Medications: Ambulatory Orders Aspirin [Aspirin Adult Low Dose] 81 mg PO DAILY 03/25/17 Carvedilol [Coreg] 3.125 mg PO BID #60 tab 03/27/17 Ergocalciferol [Vitamin D] 50,000 unit PO DAILY 07/06/18 Losartan Potassium & Hydrochlo [Losartan Potassium/Hydroc 100-25 mg] 1 tab PO DAILY 07/06/18 Potassium Chloride [Potassium Chloride ER] 10 meq PO DAILY #20 tab 07/06/18 Rosuvastatin Calcium 10 mg PO DAILY 07/06/18 Tramadol HCl 50 mg PO QID PRN 07/06/18 Review of Systems - Review of Systems Constitutional: States: no symptoms reported EENTM: States: no symptoms reported Respiratory: States: no symptoms reported Cardiology: States: no symptoms reported Gastrointestinal/Abdominal: States: no symptoms reported Genitourinary: States: no symptoms reported Musculoskeletal: States: see HPI Skin: States: no symptoms reported Neurological: States: see HPI Endocrine: States: no symptoms reported All other Systems: No Change from Baseline Past Medical History (General) - Patient Medical History Hx Seizures: No Hx Stroke: No Hx Asthma: No Hx of COPD: No Hx Cardiac Disorders: Yes - "blockage" no stents Hx Congestive Heart Failure: No Hx Pacemaker: No Hx Hypertension: Yes Hx Diabetes: No Hx Gastroesophageal Reflux: Yes Hx MRSA: No - Vaccination History Hx Tetanus, Diphtheria Vaccination: No Hx Influenza Vaccination: No Hx Pneumococcal Vaccination: No - Social History Hx Tobacco Use: Yes Hx Alcohol Use: No Hx Substance Use: No Hx Substance Use Treatment: No Hx Depression: No Hx Physical Abuse: No Hx Emotional Abuse: No - Female History Patient : No Family Medical History - Family History Mother Family History: Unknown Living Status: Hx Family Asthma: No Hx Family Congestive Heart Failure: No Hx Family Hypertension: No Hx Family Stroke: No Hx Cardiac Disease: Yes Hx Family Cancer: No Father Living Status: Hx Family Asthma: No Hx Family Congestive Heart Failure: No Hx Family Hypertension: Yes Hx Family Stroke: No Hx Cardiac Disease: Yes Hx Family Diabetes: No Hx Family Cancer: No Physical Exam - Physical Exam General Appearance: Alert, Comfortable, No apparent distress Eye Exam: bilateral normal Ears, Nose, Throat: hearing grossly normal, normal ENT inspection, normal pharynx Neck: full range of motion, supple, other - operative site appears to be healing well Respiratory: lungs clear, normal breath sounds, no respiratory distress, no accessory muscle use Cardiovascular/Chest: normal peripheral pulses, regular rate, rhythm, no edema Peripheral Pulses: radial,right: 2+, radial,left: 2+, dorsalis pedis,right: 2+, dorsalis pedis,left: 2+ Gastrointestinal/Abdominal: non tender, soft Rectal Exam: deferred Back Exam: normal inspection, no CVA tenderness Extremity: normal range of motion, non-tender, normal inspection, no pedal edema , normal capillary refill Neurologic: lead systems analyst II-XII nml as tested, alert, normal mood/affect, oriented x 3 Skin Exam: normal color Comments: Vital Signs - 24 hr 07/06/18 07/06/18 07/06/18 15:25 16:25 17:25 Temperature 98.4 F Pulse Rate [ 75 67 68 pulse ox] Respiratory 16 20 20 Rate Blood Pressure 165/103 137/84 146/87 [left brachial] O2 Sat by Pulse 95 97 95 Oximetry Progress - Progress Progress: 07/06/18 18:10 the patient is a 58-year-old female presenting to emergency room secondary to some muscle cramps. Her initial concern was for the possibility of hypocalcemia given that she has recently had a parathyroid gland removed. Her calcium is normal however her potassium and magnesium were both mildly low. She has had both of these replaced and was also given a liter of fluids. She does need to follow back up with her surgeon next week. She will be written for potassium daily for the next 2 weeks. ER warnings were given. - Results/Orders Results/Orders: Laboratory Tests 07/06/18 07/06/18 07/06/18 15:35 15:35 15:35 WBC 10.1 RBC 4.95 Hgb 14.7 Hct 43.3 MCV 87.5 MCH 29.8 MCHC 34.1 RDW 12.8 Plt Count 289 MPV 8.3 Absolute Neuts (auto) 5.90 Absolute Lymphs (auto) 2.60 Absolute Monos (auto) 1.20 H Absolute Eos (auto) 0.40 Absolute Basos (auto) 0.10 Neutrophils % 58.2 Lymphocytes % 25.4 Monocytes % 11.6 H Eosinophils % 3.9 Basophils % 0.9 Sodium 136 Potassium 3.3 L Chloride 90 L Carbon Dioxide 34 H Anion Gap 15.3 BUN 12 Creatinine 0.55 L BUN/Creatinine Ratio 21.8 H Random Glucose 106 H Serum Osmolality 272.1 L Lactic Acid 1.3 Calcium 10.2 Magnesium 1.7 L Total Bilirubin 0.4 AST 25 ALT 36 Alkaline Phosphatase 67 Creatine Kinase 84 CK-MB (CK-2) 1.7 CK-MB (CK-2) % Not Reportable Troponin I < 0.02 Serum Total Protein 7.4 Albumin 4.3 Globulin 3.1 Albumin/Globulin Ratio 1.4 TSH 2.89 Urine Color Urine Appearance Urine pH Ur Specific [place] Urine Protein Urine Glucose (UA) Urine Ketones Urine Blood Urine Nitrite Urine Bilirubin Urine Urobilinogen Ur Leukocyte Esterase Urine RBC Urine WBC Ur Epithelial Cells Urine Bacteria 07/06/18 17:41 WBC RBC Hgb Hct MCV MCH MCHC RDW Plt Count MPV Absolute Neuts (auto) Absolute Lymphs (auto) Absolute Monos (auto) Absolute Eos (auto) Absolute Basos (auto) Neutrophils % Lymphocytes % Monocytes % Eosinophils % Basophils % Sodium Potassium Chloride Carbon Dioxide Anion Gap BUN Creatinine BUN/Creatinine Ratio Random Glucose Serum Osmolality Lactic Acid Calcium Magnesium Total Bilirubin AST ALT Alkaline Phosphatase Creatine Kinase CK-MB (CK-2) CK-MB (CK-2) % Troponin I Serum Total Protein Albumin Globulin Albumin/Globulin Ratio TSH Urine Color Yellow Urine Appearance Clear Urine pH 7.5 Ur Specific [place] 1.015 Urine Protein Negative Urine Glucose (UA) Negative Urine Ketones Negative Urine Blood Trace-intact H Urine Nitrite Negative Urine Bilirubin Negative Urine Urobilinogen 0.2 Ur Leukocyte Esterase Negative Urine RBC 0-1 Urine WBC 0 Ur Epithelial Cells 1-3 Urine Bacteria 0 Departure - Departure Clinical Impression: Hypokalemia, Hypomagnesemia Disposition: Discharge to Home or Self Care Condition: Fair Departure Forms: ED Discharge - Pt. Copy, Patient Portal Self Enrollment Diet: regular diet Activity: increase activity as tolerated Referrals: ALEJO CROWLEY MD [Primary Care Provider] - 1-2 Weeks Prescriptions: Potassium Chloride [Potassium Chloride ER] 10 meq PO DAILY #20 tab Home Medications: Ambulatory Orders Aspirin [Aspirin Adult Low Dose] 81 mg PO DAILY 03/25/17 Carvedilol [Coreg] 3.125 mg PO BID #60 tab 03/27/17 Ergocalciferol [Vitamin D] 50,000 unit PO DAILY 07/06/18 Losartan Potassium & Hydrochlo [Losartan Potassium/Hydroc 100-25 mg] 1 tab PO DAILY 07/06/18 Potassium Chloride [Potassium Chloride ER] 10 meq PO DAILY #20 tab 07/06/18 Rosuvastatin Calcium 10 mg PO DAILY 07/06/18 Tramadol HCl 50 mg PO QID PRN 07/06/18 Additional Instructions: the patient is a 58-year-old female presenting to emergency room secondary to some muscle cramps. Her initial concern was for the possibility of hypocalcemia given that she has recently had a parathyroid gland removed. Her calcium is normal however her potassium and magnesium were both mildly low. She has had both of these replaced and was also given a liter of fluids. She does need to follow back up with her surgeon next week. She will be written for potassium daily for the next 2 weeks. ER warnings were given. if the problem persists, her hydrochlorothiazide may need to be discontinued.
== END 2018-07-06 18:20 | disposition home or self-care (01) ==
LOC: ER 15:18
DX: E87.6 Hypokalemia (principal); E83.42 Hypomagnesemia; R25.2 Cramp and spasm; I51.9 Heart disease, unspecified; K21.9 Gastro-esophageal reflux disease without esophagitis; I10 Essential (primary) hypertension; Z87.891 Personal history of nicotine dependence; Z79.82 Long term (current) use of aspirin; Z79.899 Other long term (current) drug therapy; Z88.8 Allergy status to other drugs, medicaments and biological substances
CPT/HCPCS: 80053; 81001; 82550; 82553; 83605; 83735; 84443; 84484; 85025; J3475; J7030

== ENCOUNTER → 2018-07-06 | Outpatient (CLI) | payer BC | LOC: LAB.O 11:08 | DX: E21.0 Primary hyperparathyroidism (principal) ==

== ENCOUNTER → 2019-08-06 | Outpatient (CLI) | payer BC | LOC: GMAE 11:54 | PROVIDERS: ATTEND Family Medicine | DX: Z00.00 Encounter for general adult medical examination without abnormal findings (principal) ==

== ENCOUNTER → 2019-09-06 | Outpatient (CLI) | payer BC, OTHER ==
--- NOTE | 2019-09-09 11:11 | CT ---
Procedure: CT LUNG SCREENING Exam Date: 09/06/2019. Ordering Provider: Sergio Ha Clinical Indication: history of tobacco use . Current cigarette smoker. 17 pack years. This patient meets eligibility criteria for low-dose CT lung cancer screening. Comparison: Chest radiograph March 2017. Technique: Using a multislice scanner, sequential helical axial imaging was obtained in the thorax, 2.5 mm thickness, 2.5 mm separation, from the level of the thoracic inlet through the lung bases without IV contrast. A low dose protocol was utilized for BMI greater than 30: BMI: 37.5. CTDI: 1.76 mGy. 120. kVp. 45 mA. DLP 70.0 mGy-cm. 2D sagittal and coronal reconstructed images, 6.0 mm thickness, were obtained. This exam was performed according to our departmental dose optimization program which includes use of automated exposure control, adjustment of the mA and/or kV according to patient size and/or use of iterative reconstruction technique. Nodule measurements under 10 mm are given as mean value of 3 axes diameters. FINDINGS: Lungs and large airways: Peripheral more than central blebs and bulla and more prevalent in the upper lung moseley. Dense capsular shaped nodular pleural thickening base of the right middle lobe on axial image 2/84 pleural parenchymal scarring lateral base right lower lobe and upper left lower lobe. These are stable since abdominal CT scan with limited visualization of the lung bases October 2014. Less than 3 mm subpleural nodule abutting the lateral left lower lobe on image 2/77. Slightly larger nodule also lateral subpleural region left lower lobe image 93. No larger nodules or masses. No acute infiltrates. Pleura and space: Bilateral apical pleural thickening and also pleural thickening abutting the lower lobes. Otherwise negative. Mediastinum and lindsay: evaluation limited by low dose technique and lack of IV contrast. Normal sized lymph nodes. No dominant soft tissue masses. Heart and great vessels: Multiple atherosclerotic calcifications in the coronary arteries. Also no sclerosis in the proximal brachiocephalic vessels aortic arch and descending thoracic aorta. Chest wall, lower neck, axillae: Evaluation also limited by same factors as described above. Normal size nodes in the axilla. Upper abdomen: Evaluation limited by low-dose technique. No free air or free fluid in the included peritoneal space. Osseous structures: Evaluation limited by low dose MIP technique. Scoliosis and fusion of the lumbar spine. No destructive lesions. IMPRESSION: 1. Radiodense 6.3 mm solid subpleural nodule in the right lower lobe versus focal pleural thickening. Other nodules bilaterally associated with the pleura but smaller. Emphysematous changes bilateral upper lobes more prevalent. Pleural thickening.. [facility] Best Practice Recommendations: please see below for Lung RADS category and FOLLOW-UP.* *Lung RADS category CATEGORY 3 - Probably benign (1-2% malignancy probability), short term follow-up suggested. NODULES: Solid nodule(s) 6mm (113.1 mm3) to less than 8mm (268.1 mm3) at baseline, or new 4mm (33.5 mm3) to under 6mm (113.1 mm3) solid nodule. Part solid nodule total diameter >= 6mm (113.1 mm3) with solid component less than 6mm, or new less than 6mm total diameter nodule] OR new <6 mm (113.1 mm3) total diameter. GGN >= 30 mm (>=68969 mm3) on baseline CT or new. FOLLOW-UP: Please return for a Low Dose Chest CT in 6 months for re-evaluation. 2. Visualization of breast limited by low-dose technique. No record of breast imaging at this facility in the past 12 months. Consider enrolling patient in breast screening program at this facility if not enrolled in a breast screening program elsewhere in the past 12 months. Electronically signed by: Zaire Walter MD 09/09/2019 11:09 AM [facility]
== END ==
LOC: CT 15:30
PROVIDERS: ATTEND Family Medicine
DX: Z87.891 Personal history of nicotine dependence (principal); R91.8 Other nonspecific abnormal finding of lung field; J43.9 Emphysema, unspecified

== ENCOUNTER → 2020-03-06 | Outpatient (CLI) | payer BC, OTHER ==
--- NOTE | 2020-03-09 08:54 | CT ---
Procedure: CT CHEST WITHOUT IV CONTRAST Exam Date: March 06, 2020. Ordering Provider: Sergio Ha Clinical Indication: Follow-up abnormal screening. Current cigarette smoker. 40 pack year smoking history. Comparison: Low-dose CT lung cancer screening examination September 06. Technique: Using a multislice scanner, sequential helical axial imaging was obtained in the thorax, 2.5 mm thickness, 2.5 mm separation, from the level of the thoracic inlet through the lung bases without IV contrast. A low dose protocol was utilized for BMI greater than 30: BMI: 38.4. CTDI: 2.92 mGy. 120. kVp. 75 mA. DLP 102 mGy-cm. 2D sagittal and coronal reconstructed images, 6.0 mm thickness, were obtained. This exam was performed according to our departmental dose optimization program which includes use of automated exposure control, adjustment of the mA and/or kV according to patient size and/or use of iterative reconstruction technique. Nodule measurements under 10 mm are given as mean value of 3 axes diameters. FINDINGS: Lungs and large airways: Stable dense nodule abutting the pleura and the right epicardial fat pad inferior right middle lobe on axial series 2, image 82. Bilateral subpleural blebs and bulla in the apices are stable along with bilateral parenchymal blebs in a centrilobular distribution more prevalent in the upper lung moseley. Stable subpleural scarring lateral recess right lower lobe and stable bilateral lower lobe pleural-parenchymal scarring. Pleura and space: Bilateral scarring as previously described and bilateral thickening focal and diffuse. Mediastinum and lindsay: evaluation limited by low dose technique and lack of IV contrast. Small nodes with no dominant soft tissue mass. Heart and great vessels: Coronary artery calcifications and atherosclerotic calcifications in the aorta. Chest wall, lower neck, axillae: Evaluation also limited by same factors as described above. Normal size lymph nodes no dominant soft tissue mass. Upper abdomen: Evaluation limited by low-dose technique. No free air or free fluid. Calcifications in the spleen. Adrenal glands normal size. Osseous structures: Evaluation limited by low dose MIP technique. Lumbar fusion. Thoracic dextroscoliosis. IMPRESSION: Stable 9 mm radiodense subpleural versus pleural nodule right middle lobe. Stable emphysematous changes more prevalent in the upper lung moseley. No new nodules and no masses. No new infiltrates.. [facility] Best Practice Recommendations: please see below for Lung RADS category and FOLLOW-UP.* *Lung RADS category CATEGORY 2- Nodules with a very low likelihood (less than 1%) of becoming a clinically active cancer due to size or lack of growth. Nodules: Perifissural nodule(s) < 10 mm. (526mm3). Solid or part solid nodule(s) less than 6mm (113.1 mm3), new solid nodule less than 4mm (33.5 mm3). Ground glass nodule(s) less than 30mm (75139.2 mm3) or unchanged or slow growing ground glass nodule 30mm or greater. Cat 3 or 4 nodule unchanged for 3 or more months. FOLLOW-UP: Continue annual screening with a Low Dose Chest CT in 12 months for re-evaluation. Patient has no film record of mammographic breast screening at this facility. Consider enrolling patient in mammographic breast screening program at this facility if not currently enrolled in a different facility breast screening program in the past 12 months. Electronically signed by: Zaire Walter MD 03/09/2020 8:53 AM CDT
== END ==
LOC: CT 14:00
PROVIDERS: ATTEND Family Medicine
DX: R91.1 Solitary pulmonary nodule (principal); J43.9 Emphysema, unspecified; F17.200 Nicotine dependence, unspecified, uncomplicated

== ENCOUNTER 2020-05-19 09:04 | Observation (INO) | payer BC, OTHER ==
--- NOTE | 2020-05-19 09:27 | ED.PDOC ---
History of Present Illness - General Chief Complaint: Neuro Symptoms/Deficits Stated Complaint: right arm and hand weakness/tingling Time Seen by Provider: 05/19/20 09:05 Source: patient, RN notes reviewed, Vital Signs reviewed Exam Limitations: no limitations - History of Present Illness Initial Comments: 60 yo RHD F with a pmh of htn, dld, current smoker presents with right UE weakness. [place] "weird" last night, but this morning had little to no strength in her R hand. States she tried opening her pill bottle and couldn't. Also has right hand tingling and numbness. No hx of carpal tunnel. no change in vision. no headaches. no recent injury. Numbness/tingling entire hand, not in certain nerve distribution. no trouble speaking. no family hx of strokes. Improving Factors: nothing Allergies/Adverse Reactions: Allergies Omeprazole [From Prilosec] Allergy (Intermediate, Verified 07/06/18 15:31) Rash Home Medications: Ambulatory Orders Losartan Potassium & Hydrochlo [Losartan Potassium/Hydroc 100-25 mg] 1 tab PO DAILY 07/06/18 Rosuvastatin Calcium 10 mg PO DAILY 07/06/18 Carvedilol [Coreg] 3.125 mg PO DAILY 05/19/20 Review of Systems - Review of Systems Constitutional: Denies: chills, fever EENTM: Denies: eye pain, blurred vision, tearing, double vision, ear pain, throat pain, mouth pain Respiratory: Denies: cough, short of breath Cardiology: Denies: chest pain, palpitations Gastrointestinal/Abdominal: Denies: abdominal pain, diarrhea, nausea, vomiting Genitourinary: Denies: dysuria, frequency, hematuria Musculoskeletal: States: back pain - chronic . Denies: joint pain, muscle pain Skin: Denies: rash Neurological: States: see HPI, numbness, paresthesia, tingling, weakness. Denies: headache, pre-existing deficit Endocrine: Denies: unexplained weight gain, unexplained weight loss Hematologic/Lymphatic: Denies: blood clots, easy bleeding, easy bruising Past Medical History (General) - Patient Medical History Hx Seizures: No Hx Stroke: No Hx Asthma: No Hx of COPD: No Hx Cardiac Disorders: Yes - "blockage" no stents Hx Congestive Heart Failure: No Hx Pacemaker: No Hx Hypertension: Yes Hx Diabetes: No Hx Gastroesophageal Reflux: Yes Hx MRSA: No Surgical History: tonsillectomy, Hysterectomy Other Surgeries:: back surgery, hystrecetomy, - Vaccination History Hx Tetanus, Diphtheria Vaccination: No Hx Influenza Vaccination: No Hx Pneumococcal Vaccination: Yes - Social History Hx Tobacco Use: Yes Hx Alcohol Use: No Hx Substance Use: No Hx Substance Use Treatment: No Hx Depression: No Hx Physical Abuse: No Hx Emotional Abuse: No - Female History Patient : No Family Medical History - Family History Mother Living Status: Hx Family Asthma: No Hx Family Congestive Heart Failure: No Hx Family Hypertension: No Hx Family Stroke: No Hx Cardiac Disease: Yes Hx Family Cancer: No Father Living Status: Hx Family Asthma: No Hx Family Congestive Heart Failure: No Hx Family Hypertension: Yes Hx Family Stroke: No Hx Cardiac Disease: Yes Hx Family Diabetes: No Hx Family Cancer: No Physical Exam - Physical Exam General Appearance: Alert, Comfortable, No apparent distress, Well Developed, Well Groomed, Well Hydrated, Well Nourished Eye Exam: bilateral normal ENT Exam: normal ENT inspection, hearing grossly normal, TMs normal Neck: non-tender, full range of motion, supple, normal inspection, trachea midline Respiratory: chest non-tender, lungs clear, normal breath sounds, no respiratory distress, no accessory muscle use Cardiovascular/Chest: normal peripheral pulses, regular rate, rhythm, no edema, no gallop, no JVD, no murmur Peripheral Pulses: radial,right: 2+, radial,left: 2+, dorsalis pedis,right: 2+, dorsalis pedis,left: 2+ Gastrointestinal/Abdominal: normal bowel sounds, non tender, soft, no organomegaly, no pulsatile mass Back Exam: normal inspection, no CVA tenderness, no vertebral tenderness Extremities Exam: non-tender, normal range of motion, no evidence of injury, no edema Mental Status: 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 , pronator drift (R), weak motor strength RUE - distal hand 4/5 Skin Exam: normal color, warm/dry Progress - Progress Progress: 05/19/20 09:30 partial ddx: stroke, TIA, cervical spine stenosis, carpal tunnel. Given the acute onset and pronator drift concern for stroke. WIll start stroke protocol. teleneurology consulted. Reviewed contraindications to tPA patient does not have any; however, she thinks her symptoms did start last night so out of time frame window. CT head without ordered. Will also get CTA head and neck. blood work sent off. 05/19/20 09:34 NIH score 2. 05/19/20 09:54 teleneurology with patient, recommends no acute therapy, stroke workup. gave NIH stroke score 1 for mild facial palsy. recommend 81mg aspirin daily. recommend lipids/hga1c, MRI of brain, echocardiogram. 05/19/20 10:18 urine with 3+ bacteria, asymptomatic, no treatment indicated at this time. pending CTA, will call for admission. 05/19/20 11:03 patient resting comfortably. VSS. permissive htn. The data reviewed when caring for this patient included: nurse notes, prior records, etc. The history and assessments from nurses notes were reviewed and considered, and the patient's home medication list was also reviewed and considered. My assessment and the results of testing completed here in the ED were discussed with the patient. All questions were answered, and she express understanding of my assessment and the plan. Luz Barry DO #[id number] - Results/Orders Results/Orders: 05/19/20 09:17 CTA Head [CT] Stat CTA Neck [CT] Stat 05/19/20 09:20 ESR [ERYTHROCYTE SEDIMENTATION RATE] Stat 05/19/20 09:45 EKG STAT 05/19/20 11:01 ED Intent to Admit Routine Laboratory Results WBC 8.0 K/mm3 (4.8-10.8) 05/19/20 09:20 RBC 5.14 M/mm3 (4.20-5.40) 05/19/20 09:20 Hgb 15.6 gm/dL (12.0-16.0) 05/19/20 09:20 Hct 44.1 % (36.0-47.0) 05/19/20 09:20 MCV 85.9 fl (81.0-99.0) 05/19/20 09:20 MCH 30.4 pg (27.0-31.0) 05/19/20 09:20 MCHC 35.4 g/dL (33.0-37.0) 05/19/20 09:20 RDW 12.9 % (11.5-14.5) 05/19/20 09:20 Plt Count 273 K/mm3 (130-400) 05/19/20 09:20 MPV 8.4 fl (7.40-10.4) 05/19/20 09:20 Absolute Neuts (auto) 5.30 K/uL (1.8-6.8) 05/19/20 09:20 Absolute Lymphs (auto) 1.70 K/uL (1.0-3.4) 05/19/20 09:20 Absolute Monos (auto) 0.50 K/uL (0.2-0.8) 05/19/20 09:20 Absolute Eos (auto) 0.30 K/uL (0.0-0.4) 05/19/20 09:20 Absolute Basos (auto) 0.10 K/uL (0.0-0.1) 05/19/20 09:20 Neutrophils % 65.9 % (42.0-78.0) 05/19/20 09:20 Lymphocytes % 21.7 % (20.0-50.0) 05/19/20 09:20 Monocytes % 6.8 % (2.0-9.0) 05/19/20 09:20 Eosinophils % 4.0 % (1.0-5.0) 05/19/20 09:20 Basophils % 1.6 % (0.0-2.0) 05/19/20 09:20 PT 10.2 SECONDS (9.0-10.9) 05/19/20 09:20 INR 1.03 (0.9-1.15) 05/19/20 09:20 PTT (SP) 26.5 SECONDS (21.8-31.6) 05/19/20 09:20 Sodium 139 mmol/L (135-145) 05/19/20 09:20 Potassium 3.4 mmol/L (3.6-5.0) L 05/19/20 09:20 Chloride 100 mmol/L (101-111) L 05/19/20 09:20 Carbon Dioxide 29 mmol/L (21-31) 05/19/20 09:20 Anion Gap 13.4 (12-18) 05/19/20 09:20 BUN 15 mg/dL (7-18) 05/19/20 09:20 Creatinine 0.58 mg/dL (0.6-1.3) L 05/19/20 09:20 BUN/Creatinine Ratio 25.9 (10-20) H 05/19/20 09:20 Random Glucose 205 mg/dL (70-105) H 05/19/20 09:20 Serum Osmolality 284.3 mOsm/L (275-295) 05/19/20 09:20 Calcium 9.1 mg/dL (8.4-10.2) 05/19/20 09:20 Magnesium 2.0 mg/dL (1.8-2.5) 05/19/20 09:20 Total Bilirubin 0.6 mg/dL (0.2-1.0) 05/19/20 09:20 AST 21 IU/L (10-42) 05/19/20 09:20 ALT 23 IU/L (10-60) 05/19/20 09:20 Alkaline Phosphatase 53 IU/L (42-121) 05/19/20 09:20 Troponin I < 0.02 ng/mL (0.01-0.05) 05/19/20 09:20 Serum Total Protein 7.7 gm/dL (6.4-8.2) 05/19/20 09:20 Albumin 4.4 g/dl (3.2-5.5) 05/19/20 09:20 Globulin 3.3 gm/dL (2.3-3.5) 05/19/20 09:20 Albumin/Globulin Ratio 1.3 (1.1-1.9) 05/19/20 09:20 Urine Color Yellow (Yellow) 05/19/20 09:55 Urine Appearance Sl cloudy (Clear) 05/19/20 09:55 Urine pH 5.5 (4.5-7.8) 05/19/20 09:55 Ur Specific [place] >= 1.030 (1.005-1.030) 05/19/20 09:55 Urine Protein Negative mg/dL 05/19/20 09:55 Urine Glucose (UA) Negative mg/dL (Negative) 05/19/20 09:55 Urine Ketones Negative mg/dL (NEGATIVE) 05/19/20 09:55 Urine Blood Trace-intact (Negative) H 05/19/20 09:55 Urine Nitrite Negative 05/19/20 09:55 Urine Bilirubin Negative (NEGATIVE) 05/19/20 09:55 Urine Urobilinogen 0.2 mg/dL (0.2-1.0) 05/19/20 09:55 Ur Leukocyte Esterase Negative (Negative) 05/19/20 09:55 Urine RBC 0-1 /hpf 05/19/20 09:55 Urine WBC 3-5 /hpf H 05/19/20 09:55 Ur Epithelial Cells 30-40 /hpf 05/19/20 09:55 Amorphous Sediment Trace 05/19/20 09:55 Urine Bacteria 3+ H 05/19/20 09:55 Urine Mucus Moderate 05/19/20 09:55 - EKG/XRAY/CT EKG: Sinus, no ST T wave changes Comments: HR 71, normal intevals, NSR, no ischemic changes. motion artificat. XRAY: chest - no acute cardiopulmonary pathology CT: no ICH, no acute abnormalities. - Consult/PCP Time Called: 11:00 Consult/PCP: David Rubio Stroke Information - Onset of Symptoms Symptoms of Stroke: Weakness of limb, Numbness Stroke Onset of Symptoms Date: 05/18/20 Stroke Onset of Symptoms Time: 21:00 - Contraindications t-PA Contraindication: Drug Tx Not Indicated Departure - Departure Clinical Impression: Stroke-like symptoms, Hyperglycemia, Hypokalemia Disposition: Admit Patient Departure Forms: ED Discharge - Pt. Copy, Patient Portal Self Enrollment Referrals: ALEJO CROWLEY MD [Primary Care Provider] - 1-2 Days Home Medications: Ambulatory Orders Losartan Potassium & Hydrochlo [Losartan Potassium/Hydroc 100-25 mg] 1 tab PO DAILY 07/06/18 Rosuvastatin Calcium 10 mg PO DAILY 07/06/18 Carvedilol [Coreg] 3.125 mg PO DAILY 05/19/20 Decision To Admit - Decistion To Admit Decision to Admit Reason: Medical Nature Decision to Admit Date: 05/19/20 Decision to Admit Time: 10:30
--- NOTE | 2020-05-19 09:54 | ED.PDOC ---
History of Present Illness - General Chief Complaint: Neuro Symptoms/Deficits Stated Complaint: right arm and hand weakness/tingling Time Seen by Provider: 05/19/20 09:05 - History of Present Illness Initial Comments: [facility] Consult Note # Demographics First Name: jeane Last Name: cornelia Date of : 1960 Age: 60 Gender: female Time of initial page ([place] Time): 05-19-2020, 08:46:00 Time of return call ([place] Time): 05-19-2020, 08:46:00 # HPI Additional History: 60yo woman who had right hand weakness and dyscoordination. She noted this possibly last night, but was more prominent this morning. No leg weakness or facial drooping. Duration: stable, hours Associated Symptoms: no confusion, no dizziness, no headache, no sound sensitivity, no swallowing problems Quality: no slurred speech, no word finding difficulty # Scores Time of exam and NIHSS ([facility]): 05-19-2020, 08:49:00 Level of Consciousness 1a: [0] = Alert; keenly responsive LOC Questions 1b: [0] = Answers both questions correctly LOC Commands 1c: [0] = Performs both tasks correctly Best Gaze 2: [0] = Normal Visual 3: [0] = No visual loss Facial Palsy 4: [1] = Minor paralysis Motor Arm Left 5a: [0] = No drift Motor Arm Right 5b: [0] = No drift Motor Leg Left 6a: [0] = No drift Motor Leg Right 6b: [0] = No drift Limb Ataxia 7: [0] = Absent Sensory 8: [0] = Normal Best Language 9: [0] = No aphasia Dysarthria 10: [0] = Normal Extinction and Inattention 11: [0] = No abnormality NIHSS Total: 1 # PMH-FH-SH Past Medical History: hyperlipidemia, hypertension Social History: smoker, non-drinker Medications: denies # Exam Vitals: vital signs reviewed SBP: 181 DBP: 88 Motor: decreased fine motor movements on right # Assessment Impression: Ischemic Stroke (Acute) # Plan Thrombolytic/Intervention: NOT IV Alteplase or IA Intervention Alteplase Exclusion: > 4.5 hours Intraarterial Exclusion: clinically consistent with small vessel disease Blood Pressure Target: SBP < 220 Labs: ESR, hemoglobin A1c, lipid panel Imaging: (urgency: routine admission): CT Angiogram Head and CT Angiogram Neck, MRI Brain without contrast Diagnostic Test: echo with bubble study Therapy/Evaluation: NPO until swallow evaluation, PT/OT evaluation, speech/swallow consultation Medication: aspirin 81 mg daily DVT Prophylaxis: SCD, chemical DVT prophylaxis Other: permissive hypertension, telemetry monitoring, I have discussed my recommendations with the referring provider Allergies/Adverse Reactions: Allergies Omeprazole [From Prilosec] Allergy (Intermediate, Verified 07/06/18 15:31) Rash Home Medications: Ambulatory Orders Losartan Potassium & Hydrochlo [Losartan Potassium/Hydroc 100-25 mg] 1 tab PO DAILY 07/06/18 Rosuvastatin Calcium 10 mg PO DAILY 07/06/18 Carvedilol [Coreg] 3.125 mg PO DAILY 05/19/20 Past Medical History (General) - Patient Medical History Hx Seizures: No Hx Stroke: No Hx Asthma: No Hx of COPD: No Hx Cardiac Disorders: Yes - "blockage" no stents Hx Congestive Heart Failure: No Hx Pacemaker: No Hx Hypertension: Yes Hx Diabetes: No Hx Gastroesophageal Reflux: Yes Hx MRSA: No Surgical History: tonsillectomy, Hysterectomy - Vaccination History Hx Tetanus, Diphtheria Vaccination: No Hx Influenza Vaccination: No Hx Pneumococcal Vaccination: Yes - Social History Hx Tobacco Use: Yes Hx Alcohol Use: No Hx Substance Use: No Hx Substance Use Treatment: No Hx Depression: No Hx Physical Abuse: No Hx Emotional Abuse: No - Female History Patient : No Family Medical History - Family History Mother Family History: Unknown Living Status: Hx Family Asthma: No Hx Family Congestive Heart Failure: No Hx Family Hypertension: No Hx Family Stroke: No Hx Cardiac Disease: Yes Hx Family Cancer: No Father Living Status: Hx Family Asthma: No Hx Family Congestive Heart Failure: No Hx Family Hypertension: Yes Hx Family Stroke: No Hx Cardiac Disease: Yes Hx Family Diabetes: No Hx Family Cancer: No Progress - EKG/XRAY/CT CT Ordered: Yes Departure - Departure Clinical Impression: Stroke-like symptoms Disposition: Discharge to Home or Self Care Departure Forms: ED Discharge - Pt. Copy, Patient Portal Self Enrollment Referrals: ALEJO CROWLEY MD [Primary Care Provider] - 1-2 Weeks Home Medications: Ambulatory Orders Losartan Potassium & Hydrochlo [Losartan Potassium/Hydroc 100-25 mg] 1 tab PO DAILY 07/06/18 Rosuvastatin Calcium 10 mg PO DAILY 07/06/18 Carvedilol [Coreg] 3.125 mg PO DAILY 05/19/20
--- NOTE | 2020-05-19 09:54 | CT ---
EXAM DESCRIPTION: CT head without contrast CLINICAL HISTORY: possible stroke COMPARISON: None available TECHNIQUE: Noncontrast head CT was performed with routine protocol. FINDINGS: Normal martínez-white matter differentiation. Ventricles and sulci are normal for age. No high density hemorrhage, focal edema or shift of the midline. No sulcal effacement. Normal orbital contents. Basilar cisterns appear clear. Intact calvarium with no fracture or lytic lesion. Normal aeration of tympanic cavities and mastoid air cells. No fluid levels in the paranasal sinuses. Skull base appears intact. Symmetrical internal auditory canals. I called the report to Roma in the emergency department at [facility] at the time of image interpretation 9:51 AM on 05/19/2020. IMPRESSION: No acute intracranial pathologic process. This exam was performed according to our departmental dose-optimization program, which includes automated exposure control, adjustment of the mA and/or kV according to patient size and/or use of iterative reconstruction technique. Total DLP equals 752.48 mGycm. Electronically signed by: Cameron Banks MD 05/19/2020 9:52 AM CDT
--- NOTE | 2020-05-19 09:55 | RAD ---
EXAM DESCRIPTION: Chest,1 View CLINICAL HISTORY: 60 years Female, cp COMPARISON: Report from chest x-ray March 25, 2017 TECHNIQUE: AP portable chest. FINDINGS: Heart size is normal with normal pulmonary vascularity. No consolidating infiltrate. No pulmonary mass or worrisome nodule. No pneumothorax or pleural effusion. Bones are unremarkable. IMPRESSION: No acute process is identified in the chest. Electronically signed by: Cameron Banks MD 05/19/2020 9:53 AM CDT
[2020-05-19] MEDS ORDERED: ASPIRIN TABLET 325 MG TAB PO ONE (10:06)
[2020-05-19] MEDS ORDERED: POTASSIUM CHLORIDE ELIXIR 20 MEQ/15 ML UD PO ONE (10:08)
--- NOTE | 2020-05-19 11:28 | CT ---
EXAM DESCRIPTION: CTA Head (accession [id number]), CTA Neck (accession [id number]) CLINICAL HISTORY: 60 years, Female, possible stroke COMPARISON: None TECHNIQUE: Rapid bolus administration of nonionicIV contrast was performed with thin-section axial scanning of the thoracic outlet, neck, and head performed in a dynamic fashion. Reconstructed multiplanar and three dimensional MIP and/or VRT images were created on a separate dedicated workstation were reviewed along with the source axial images and stored in the patient's medical record. Stenoses were evaluated using the NASCET criteria. Image quality is moderately limited by the large [id number], fair vascular enhancement, and relatively large slice thickness. This exam was performed according to our departmental dose-optimization program, which includes automated exposure control, adjustment of the mA and/or kV according to patient size and/or use of iterative reconstruction technique. FINDINGS: The upper lung moseley demonstrate no infiltrate or consolidation with mild bullous and emphysematous changes particularly in the posterior apices, right greater than left. No mass or layering pleural effusion noted. CTA NECK: Mild aortic arch atherosclerosis with widely patent great vessels noted. Dense undiluted contrast within the vena cava and innominate vein and left subclavian vein limits evaluation at the thoracic outlet. The origin of the dominant left vertebral and nondominant right vertebral artery appears widely patent. Satisfactory filling of the vessels to the intracranial level noted. On the right there is a focal calcific plaque medially at the origin of the ICA without significant stenosis. Less than 40% stenosis suspected. On the left there is mild calcific plaque most prominently at the origin of the external carotid artery without significant ICA stenosis. Both ICA vessels are patent to the skull base and through the region of the carotid siphon with nonstenotic calcified plaque in each carotid siphon. No significant stenosis seen. CTA HEAD: Supraclinoid portion of each internal carotid artery widely patent with normal bifurcation with satisfactory filling of both middle and anterior cerebral arteries. Focal aneurysm or stenosis or occlusion is not apparent. No vascular malformation or enhancing mass noted. The basilar artery is widely patent with normal bifurcation at the basilar tip without aneurysm. Both posterior cerebral arteries arise from the basilar tip without evidence of occlusion or aneurysm or vascular malformation. IMPRESSION: 1. Mild aortic arch and carotid atherosclerosis with no hemodynamically significant stenosis on the right or left. 2. Dominant left vertebral artery with satisfactory filling of both vessels. 3. Normal CTA of the head intracranially. 4. Mild bullous changes both pulmonary apices, right greater than left. Electronically signed by: Dick Richardson MD 05/19/2020 11:25 AM CDT
--- NOTE | 2020-05-19 12:30 | MRI ---
EXAM DESCRIPTION: Brain w/o Contrast: MRI. CLINICAL HISTORY: stroke COMPARISON: CTA head, CTA neck and head on this visit. TECHNIQUE: Multiplanar, high-field MRI unit, multiple diffusion sequences, multiple conventional sequences without contrast. FINDINGS: Abnormal hyperintense foci of signal in the B 1000 diffusion sequences and the standard diffusion sequence at the junction of the posterior left parietal lobe and the anterior left occipital lobe above the left lateral ventricle. This region is hypointense on the ADC map that demonstrates hyperintense foci on T2 and FLAIR sequences. Not associated with hemorrhage, mass effect, or shift. Bilateral multiple foci of hyperintense FLAIR and T2-weighted signal in the periventricular white matter and sub-cortical white matter and centrum semiovale relative sparing of the parietal lobes.. No hemorrhage, no cerebral edema, no midline shift.. Same focal hyperintense signal in the posterior left basal ganglia. No hemorrhage, no cerebral edema, no mass-effect same hyperintense focal signal in the right side of the yolis, with normal signal in the remainder of the brainstem. No hemorrhage, no cerebral edema, no mass-effect. Remainder of the brain showing concordance of the diffusion and non-diffusion sequences with no diffusion restriction. Cortical sulci, ventricles, and other CSF spaces, and the subdural spaces are minimally prominent for patient's age. No effacement or displacement. No midline shift. No extra-axial hemorrhage. Normal flow signal void in the major vessels of the [place] L[place], and the venous sinuses. IACs are symmetric bilaterally. Normal signal in the bilateral mastoid air cells. No mass effect in the bilateral cerebellopontine angles. Pituitary gland occupies only the base of the sella. Base of the cerebellar tonsils is above the foramen magnum. Mucoperiosteal thickening in the anterior ethmoid air cells and frontal sinuses but no air-fluid levels.. The bony calvarium is intact. IMPRESSION: 1. Abnormal diffusion and abnormal signal in the subcortical white matter at the junction of the left parietal lobe and left occipital lobe, without mass effect, and no hemorrhage or cerebral edema. Consistent with acute versus subacute infarction. 2. Bilateral multifocal subcortical white matter signal changes consistent with cerebral microvascular disease. Also focal ischemic disease in the right yolis and posterior left basal ganglia. Increased cortical atrophy especially frontal and parietal lobes for patient's age. No hydrocephalus. 3. Chronic paranasal sinusitis. CRITICAL COMMUNICATION: The critical value was communicated directly by Dr. Walter via phone call, with Dr. Luz Barry, at approximately 1205 hours, on May 19, 2020. Electronically signed by: Zaire Walter MD 05/19/2020 12:27 PM CDT
[2020-05-19] MEDS ORDERED: IPRATROPIUM/ALBUTEROL 3 ML VIAL NEB ONE (13:05)
--- NOTE | 2020-05-19 13:34 | HP ---
SUPERVISING PHYSICIAN: Margarette Rangel MD CHIEF COMPLAINT: Right arm hand weakness and tingling. HISTORY OF PRESENT ILLNESS: Ms. Medley is a 60-year-old female patient, right hand dominant, with past medical history of hypertension and currently smokes. She presented to the Emergency Room with right upper quadrant weakness. She endorses that she felt weird last night and this morning had little to no strength in her right hand. She notes she tried to open a pill bottle this morning and noted that she could not and also had some tingling and numbness in that hand. She has no history of carpal tunnel syndrome. She denied any other changes, no recent injuries. Laboratory studies in the Emergency Room showed she had a normal white count. PT, PTT were all within normal limits. Chemistry showed just a mildly low potassium of 3.4. Otherwise, electrolytes were within normal limits. Creatinine 0.58, calcium normal at 9.1. Troponin less than 0.02. Urinalysis showed 3 to 5 WBCs, 30 to 40 epithelial, 3+ bacteria. She had a CT of the head in the ER with no acute findings. Given her symptomatology, a tele-neurological consultation was obtained. Dr. Alfonso saw the patient through tele consult and after consultation he felt the patient had suffered an ischemic stroke and recommended the patient be admitted for acute overnight observation. The patient was placed in observation in stable condition. PAST MEDICAL HISTORY: 1. Hypertension. 2. Hyperlipidemia. 3. Irritable bowel syndrome. 4. Chronic obstructive pulmonary disease. 5. Chronic tobacco abuse. PAST SURGICAL HISTORY: 1. Hysterectomy. 2. Bladder suspension. 3. Lumbar cervical back surgery. 4. Neck surgery. 5. Repair of deviated nasal septum. HOME MEDICATIONS: 1. Rosuvastatin 10 mg daily. 2. Losartan/hydrochlorothiazide 100-25 mg 1 tablet daily. 3. Coreg 3.125 mg daily. ALLERGIES: OMEPRAZOLE. FAMILY HISTORY: Father at age 42 from myocardial infarction. Mother at age 82 secondary to Alzheimer's disease complications. SOCIAL HISTORY: The patient lives just outside of [place]. She is . She smokes approximately 1-1/2 packs of cigarettes daily. 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 She denies any alcohol or drug usage. REVIEW OF SYSTEMS: CONSTITUTIONAL: Negative for any fevers, chills or general malaise. HEENT: Negative for headaches, neck pain or stiffness, sore throats, earaches, nasal congestion, vision changes. CARDIOVASCULAR: Negative for chest pain, palpitations or syncopal episodes. GASTROINTESTINAL: Negative for nausea, vomiting, diarrhea or abdominal pain. GENITOURINARY: Negative for dysuria, hematuria, polyuria. MUSCULOSKELETAL: Negative for joint pain, muscle pain. SKIN: Negative for lesions, rashes, moles or unexplained changes. NEUROLOGIC: As noted in history of present illness, numbness, paresthesias and tingling to right upper extremity. Denies headaches or pre-existing deficits. ENDOCRINE: Denies unexplained weight gain or weight loss. HEMATOLOGIC: Negative for easy bruising, unexplained bleeding, blood clots or transfusion reactions. PHYSICAL EXAMINATION: VITAL SIGNS: Temperature 97.4, pulse 74, blood pressure 147/77, respirations 17, saturation 99% on room air. GENERAL: The patient is resting, does not appear to be in any distress, looks comfortable. She is well-groomed, well-hydrated. HEENT: Tympanic membranes clear bilaterally. Oropharynx is pink, moist without any lesions. NECK: Supple, nontender with full range of motion. No jugular venous distention noted. RESPIRATORY: Lung sounds are clear to auscultation bilaterally without any rhonchi, wheezes or rales. CARDIOVASCULAR: Regular rate and rhythm without any appreciable murmurs, gallops, or rubs. ABDOMEN: Soft, nontender. Positive bowel sounds. BACK: No CVA tenderness, no vertebral tenderness. EXTREMITIES: There is no cyanosis, clubbing or edema. NEUROLOGIC: Cranial nerves II-XII are grossly intact. She has normal speech pattern. Pupils are equal and reactive to light. Facial features are symmetrical. There is no nystagmus noted. The patient is alert and oriented times three. Two-point discrimination was intact. Pronator drift was noted slightly on the right with weak motor strength in right upper extremity. Distal hand was 4/5. SKIN: Warm, pink and dry. LABORATORY: White count 8,000, hemoglobin 15.6, hematocrit 44.1, platelet count 273,000. Differential was without a left shift. ESR within normal limits at 10. Normal PT, PTT. Chemistry showed sodium 139, potassium 3.4, BUN 15, creatinine 0.58, calcium 9.1, magnesium 2.0. Liver functions were within normal limits. Troponin less than 0.02. Urinalysis showed trace intact blood. Microscopic showed 3 to 5 RBCs with 30 to 40 epithelials with moderate mucus and trace of sediment with 3+ bacteria. RADIOLOGY: Brain MRI showed abnormal diffusion and abnormal signal in the subcortical white matter at the junction of the left parietal lobe and left occipital lobe without any mass effect or hemorrhage or cerebral edema. Consistent with acute versus subacute infarction. There was note of bilateral multifocal subcortical white matter signal changes consistent with cerebral microvascular disease, also focal ischemic disease of the right yolis and posterior left basal ganglia. Increased cortical atrophy in parietal lobes for the patient's age. Chronic paranasal sinusitis. See that report for details. Head and neck CTA per radiologic interpretation showed mild aortic arch and carotid atherosclerosis with widely patent patent great vessels. No significantly hemodynamically significant stenosis on the right or left. Dominant left vertebral artery with satisfactory filling of both vessels. Normal CTA of the head intracranially. Mild bullous changes both pulmonary apices, right greater than left. CT of the head was without any acute pathology. Chest x-ray per radiologic interpretation was without any acute process. Please radiology interpretation on all those reports. ASSESSMENT: 1. Acute ischemic cerebrovascular accident involving the left parietal lobe and left occipital lobe. 2. Mild electrolyte imbalance including hypokalemia. 3. History of hypertension. 4. History of hyperlipidemia. 5. History of irritable bowel syndrome. 6. History of chronic obstructive pulmonary disease in a chronic smoker. 7. Chronic tobacco abuse. PLAN: Ms. Meldey is going to be placed in observation overnight at the recommendation of tele-neurology, Dr. Alfonso. The patient is not a candidate for IV TPA or IA intervention due to the fact that symptoms are greater than 4- 1/2 hours and clinical findings were consistent with small vessel disease. She will be allowed to have permissive hypertension with target systolic blood pressure less than 220. We will recheck labs in the morning to include ESR, hemoglobin A1c and lipid panel. She will also have echocardiogram with bubble study. She will be NPO until she has a bedside swallow study by the nurses. She will need physical therapy and occupational therapy evaluation as well as speech and swallow consultation at some point. I did discuss with her going to inpatient rehab for further treatment. She will be started on aspirin 81 mg. She will have DVT prophylaxis with SCDs and Lovenox. She will be allowed permissive hypertension. She is on telemetry. She will have followup with Dr. Rangel once discharged. I anticipate her length of stay to be at least one to two days, probably discharging tomorrow. Until then, we will continue to monitor and treat as needed. [facility][id number] [facility]
[2020-05-19] MEDS ORDERED: ACETAMINOPHEN 325 MG TAB PO ONE (15:34)
[2020-05-19] MEDS ORDERED: HYDROcodone 10MG/APAP 325MG 1 EA TAB PO PRN (15:52)
[2020-05-19] MEDS ORDERED: SODIUM CHLORIDE 0.9% (FLUSH) 10 ML SYG IV PRN (15:53)
[2020-05-19] MEDS ORDERED: IV SET AND CAP CHANGE INJ INJ SCH (16:00)
[2020-05-19] MEDS ORDERED: SIMVASTATIN 20 MG TAB ONE (19:55)
[2020-05-19] MEDS ORDERED: diphenhydrAMINE HCL 25 MG CAP PO PRN (20:33)
[2020-05-19] MEDS ORDERED: diphenhydrAMINE HCL 25 MG CAP ONE (20:37)
[2020-05-19] MEDS ORDERED: SIMVASTATIN 20 MG TAB PO SCH (21:00)
[2020-05-20] MEDS ORDERED: CARVEDILOL 3.125 MG TAB PO SCH (09:00)
[2020-05-20] MEDS ORDERED: LOSARTAN POTASSIUM 100 MG TAB PO SCH (09:00)
[2020-05-20] MEDS ORDERED: hydroCHLOROthiazide 25 MG TAB PO SCH (09:00)
[2020-05-20] MEDS ORDERED: ASPIRIN (CHEWABLE) 81 MG TAB PO SCH (09:00)
[2020-05-20 14:20] VITALS: O2SAT 93
[2020-05-20 16:07] VITALS: BP 121/82; TEMP 98
[2020-05-20] MEDS ORDERED: ENOXAPARIN SODIUM 40 MG/0.4 ML SYG SUBCU SCH (22:00)
--- NOTE | 2020-05-21 13:30 | OP ---
DATE OF PROCEDURE: 05/19/20 PREOPERATIVE DIAGNOSIS: 1. Left face lesion on the upper lateral cheek. 2. Left upper cutaneous lip lesion. POSTOPERATIVE DIAGNOSIS: 1. Left face lesion on the upper lateral cheek. 2. Left upper cutaneous lip lesion. PROCEDURE: 1. Excision, left cheek mass, skin and subcutaneous tissue. Overall tumor dimension with margin is 2.6 by 2.5 cm. 2. Full thickness excision of upper lip mass, 5 by 10 mm. SURGEON: Miguel Bennett MD ANESTHESIA: Local. FINDINGS: The lesion on the cheek was raised with a slightly necrotic center, kind of like a donut. Its measurement was 2.1 by 2.2 cm with a gross margin of 4 mm. The lip lesion was approximately 5 by 7 mm. PROCEDURE: In the lateral position, she was prepped and draped in sterile fashion. We considered different possible flaps, but given the patient's wrinkles and mobility of her skin, a simple elliptical incision was used for the upper lateral cheek. Local anesthesia was placed with epinephrine. Elliptical incision was made over the previously marked gross borders and taken full thickness. Palpation got deep than the lesion. Nerves were functional at that time and no evidence of any nerve or vascular injury. We did undermine a little bit both ways to allow for advancement of the tissue. The left side, the nasolabial fold was pulled ever so slightly, however, overall it looked good after closure, which was done with multiple interrupted 4-0 Prolene sutures. The lip lesion, which was in the cutaneous lip on the left side, a simple elliptical incision vertically was made. It did not involve the vermilion border. I explained to her this was likely benign, but if it is malignant, she would need a referral for more complex reconstruction. It was removed with elliptical incision and closed with 3 interrupted 4-0 Prolene sutures. It look fine. She tolerated the procedure and was awakened and taken to Recovery to be discharged. #[id number] cc: MD KEVIN Block
--- NOTE | 2020-05-21 20:30 | DS ---
SUPERVISING PHYSICIAN: Jaquan Rangel M.D. ADMISSION DIAGNOSIS: 1. Acute ischemic cerebrovascular accident involving the left parietal lobe and left occipital lobe. 2. Mild electrolyte imbalance including hypokalemia. 3. History of hypertension. 4. History of hyperlipidemia. 5. History of irritable bowel syndrome. 6. History of chronic obstructive pulmonary disease in a chronic smoker. 7. Chronic tobacco abuse. DISCHARGE DIAGNOSIS: 1. Mild electrolyte imbalance, including hypokalemia, resolved prior to discharge. 2. Mild electrolyte imbalance including hypokalemia. 3. History of hypertension. 4. History of hyperlipidemia. 5. History of irritable bowel syndrome. 6. History of chronic obstructive pulmonary disease in a chronic smoker. 7. Chronic tobacco abuse. REASON FOR HOSPITALIZATION: Ms. Medley is a 60-year-old female patient, right hand dominant, with past medical history of hypertension and currently smokes. She presented to the Emergency Room with right upper quadrant weakness. She endorses that she felt weird last night and this morning had little to no strength in her right hand. She notes she tried to open a pill bottle this morning and noted that she could not and also had some tingling and numbness in that hand. She has no history of carpal tunnel syndrome. She denied any other changes, no recent injuries. Laboratory studies in the Emergency Room showed she had a normal white count. PT, PTT were all within normal limits. Chemistry showed just a mildly low potassium of 3.4. Otherwise, electrolytes were within normal limits. Creatinine 0.58, calcium normal at 9.1. Troponin less than 0.02. Urinalysis showed 3 to 5 WBCs, 30 to 40 epithelial, 3+ bacteria. She had a CT of the head in the ER with no acute findings. Given her symptomatology, a tele-neurological consultation was obtained. Dr. Alfonso saw the patient through tele consult and after consultation he felt the patient had suffered an ischemic stroke and recommended the patient be admitted for acute overnight observation. The patient was placed in observation in stable condition. LABORATORY: Labs on discharge showed a CBC within normal limits. ESR was normal at 5. Electrolytes were within normal limits. BUN 13, creatinine 0.46, hemoglobin A1c was 6.5, calcium 8.6, magnesium was normal at 2.0. Lipid panel showed elevated triglycerides of 204, cholesterol was normal at 194, LDL cholesterol direct was 108, HDL cholesterol was 46. TSH was normal at 3.45. Urinalysis showed a trace of intact blood. Microscopic revealed 3 to 5 RBCs with 30 to 40 epithelials with a moderate amount of mucous, trace of sediment with 3+ bacteria. MICROBIOLOGY: No specimen submitted due to the specimen that was submitted was contaminated. No signs of underlying urinary tract infection. RADIOLOGY: She had multiple imaging studies. MRI of the brain showed findings consistent with acute versus subacute infarction involving the left parietal lobe and left occipital lobe. There was also note of bilateral multifocal subcortical white matter signal changes consistent with microvascular disease, also a focal ischemic disease in the right yolis and posterior left basal ganglia including cortical atrophy, especially frontal and parietal lobes for the patient's age. There was also noted a chronic paranasal sinusitis. CT of the neck and head: CT of the neck showed mild aortic arch atherosclerosis with widely patent great vessels. Ultimately impression shows no hemodynamically significant stenosis of the right or left. Dominant left vertebral arteries with satisfactory filling of both vessels. Normal CT of the head intracranially. There is mild bullous changes in both pulmonary apices, right greater than left. Chest x-ray showed no acute process identified within the chest. 12-lead EKG showed sinus rhythm with no ST or T wave changes. Heart rate was 71. No ischemic changes noted. CONSULTATION: [facility] telemedicine, Dr. Howie Alfonso. Please see that Consultation Report for details. HOSPITAL COURSE: Ms. Medley was placed in observation overnight for close neurological monitoring after she had sustained an acute ischemic stroke with some mild weakness noted in the right hand with some incoordination of the fingers. Her symptoms did resolve overnight. She had a physical therapy evaluation in the morning prior to discharge with no obvious deficits noted. She was educated at length on the dangers of smoking and continued smoking given the fact that she just had an acute ischemic stroke. Her vital signs did show they were stable. She was not started back on her blood pressure medicine until she was discharged. At discharge her blood pressure was 121/82. She was showing saturations at 93. She was afebrile. Exam failed to reveal any additional neurological findings. It was felt that she had shown to be clinically stable enough to continue with outpatient management. She was started on an aspirin at the recommendations of Neurology as well as after talking with Dr. Rangel, her primary care provider, she was started on Plavix at discharge along with the aspirin. PLAN: Ms. Medley was discharged to followup with Dr. Rangel, to call his office for an appointment within the next 7 days. She was given instructions that she was to return to the Emergency Department if she had any concerning symptoms or return of her previous symptoms. Again, she was educated at length well over 15 minutes in regards to smoking cessation. She was given multiple educational materials on smoking dangers and how to stop smoking, and the need to followup with Dr. Rangel in regards to help with smoking cessation. Activities: She is not to resume any strenuous activities until she follows up with Dr. Rangel and was given warnings of the danger of driving until followup with Dr. Rangel and cleared. She was encouraged to follow a low fat low cholesterol diet. New medications at time of discharge again were dual antiplatelet therapy with aspirin and Plavix. Condition on discharge was stable and improved. DISPOSITION: The patient was discharged home. Medications prescribed on discharge included: 1. Aspirin 81 mg daily. 2. Plavix 75 mg daily, #30. All other medications prior to hospitalization were continued, includin. Rosuvastatin 10 mg daily. 2. Losartan Hydrochlorothiazide 100/25 mg 1 tablet daily. 3. Coreg 3.[address] [id number] [facility]
== END 2020-05-20 12:50 | disposition home or self-care (01) ==
LOC: ER 09:04 → MS 13:32
PROVIDERS: ADMIT Nurse Practitioner Family; ATTEND Nurse Practitioner Family
DX: I63.9 Cerebral infarction, unspecified (principal); G83.21 Monoplegia of upper limb affecting right dominant side; R29.701 NIHSS score 1; E87.6 Hypokalemia; E87.8 Other disorders of electrolyte and fluid balance, not elsewhere classified; I10 Essential (primary) hypertension; E78.5 Hyperlipidemia, unspecified; K58.9 Irritable bowel syndrome, unspecified; J44.9 Chronic obstructive pulmonary disease, unspecified; F17.210 Nicotine dependence, cigarettes, uncomplicated; K21.9 Gastro-esophageal reflux disease without esophagitis; I70.0 Atherosclerosis of aorta; Z79.899 Other long term (current) drug therapy; Z88.8 Allergy status to other drugs, medicaments and biological substances
CPT/HCPCS: Q0163; J7620; 80048; 80053; 83036; 80061; 36415 ×6; 81001; 85025; 83735; 85730; 85610; 85651 ×2; 84443; 84484; 71045; 70450; 70496; 70498; 94760 ×4; 94640; 99406; 97116; 97162; 99285; 93306; 70551; 93005; G0378

== ENCOUNTER → 2020-09-07 | Outpatient (CLI) | payer BC, OTHER | LOC: GMAE 14:24 | PROVIDERS: ATTEND Family Medicine | DX: Z00.00 Encounter for general adult medical examination without abnormal findings (principal) ==